=== PATIENT | female | born 1965 | race Caucasian/White ===

== ENCOUNTER 2017-02-24 22:24 | Observation (INO) | payer MEDICARE ==
[~2017-02-24] VITALS: Ht 160 cm; Wt 65.7 kg
--- NOTE | 2017-02-25 00:22 | DIAGNOSTIC IMAGING REPORT ---
PROCEDURE: XR ABD SERIES 2V ABD/1V CHEST INDICATION: NAUSEA TECHNIQUE: AP supine and upright views of the abdomen with single view of the chest. COMPARISON: None. FINDINGS: CHEST: Small bibasilar infiltrates, right greater than left. Normal cardiovascular structures. Bony thorax is unremarkable. ABDOMEN: Bowel gas pattern is normal. Cholecystectomy and pelvic surgical changes.. No soft-tissue masses or unusual calcifications. No evidence of free air. Moderate levoscoliosis. Right hip arthroplasty and total left hip arthroplasty IMPRESSION: 1. Bibasilar infiltrates suggestive of pneumonia 2. Nonspecific bowel gas pattern.
--- NOTE | 2017-02-25 02:23 | ED ORDER SUMMARY ---
..... Patient: LALA LUNA OrderSheet [facility] VisitID: [id number] [place] [address] 52y, F Registration Date/Time: 02/24/2017 ORDER SHEET Weight: 58.9 kg (stated) Allergies: Seroquel, Lamictal GENERAL ORDERS: CBC w Diff Urgent (22:51 02/24/2017 TChapman R.N. per protocol) (Ack 22:52 AMcQuoid ER Tech1) (1:02 CBradburn R.N.) CMP Urgent (22:51 02/24/2017 TChapman R.N. per protocol) (Ack 22:52 AMcQuoid ER Tech1) (1:02 CBradburn R.N.) PT with INR Urgent (22:51 02/24/2017 TChapman R.N. per protocol) (Ack 22:52 AMcQuoid ER Tech1) (1:02 CBradburn R.N.) UA-Culture if indicated Urgent (22:51 02/24/2017 TChapman R.N. per protocol) (Ack 22:52 AMcQuoid ER Tech1) (1:02 CBradburn R.N.) Vitals (22:51 02/24/2017 TChapman R.N. per protocol) (Ack 22:52 AMcQuoid ER Tech1) (23:16 TChapman R.N.) NPO (22:51 02/24/2017 TChapman R.N. per protocol) (Ack 22:52 AMcQuoid ER Tech1) (23:16 TChapman R.N.) Amylase Urgent (23:04 02/24/2017 ABlanchette PA-C) (Ack 23:07 AMcQuoid ER Tech1) (1:02 CBradburn R.N.) Lipase Urgent (23:04 02/24/2017 ABlanchette PA-C) (Ack 23:07 AMcQuoid ER Tech1) (1:02 CBradburn R.N.) Abd Series 2V Abd/1V Chest Urgent (23:06 02/24/2017 ABlanchette PA-C) (Ack 23:07 AMcQuoid ER Tech1) (23:42 RFay) MEDICATION ORDERS: Phenergan IV 25 mg (HIGH ALERT MEDICATION, NOW) (01:09 02/25/2017 Tia Jaime) (Ack 1:14 Gilda R.N.) (1:29 Gilda R.N.) IV FLUIDS: IV NS with Normal Saline 1 Liter: initial bolus 1000 mL (1000 mL/hr), then 1000 mL/hr (NOW) (22:50 02/24/2017 TChapman R.N. per protocol) (22:57 TChapman R.N.) IV Saline Lock (22:51 02/24/2017 TChapman R.N. per protocol) (22:56 TChapman R.N.) Ondansetron IV 4 mg (NOW) (22:55 02/24/2017 TChapman R.N. per protocol) (23:14 TChapman R.N.) Dilaudid IV 0.5 mg (HIGH ALERT MEDICATION, NOW) (23:03 02/24/2017 ABlanchette PA-C) (23:16 TChapman R.N.) Pepcid IV 20 mg/50mL (NOW) (23:04 02/24/2017 ABlanchette PA-C) (23:20 TChapman R.N.) Reglan IV 10 mg (NOW) (23:40 02/24/2017 ABlanchette PA-C) (Ack 23:45 TChapman R.N.) (23:51 TChapman R.N.) Ceftriaxone IV 1 gm/50mL (NOW) (23:41 02/24/2017 ABlanchette PA-C) (Ack 23:45 TChapman R.N.) (23:58 TChapman R.N.) Benadryl IV 25 mg (NOW) (01:09 02/25/2017 Tia Jaime) (Ack 1:14 Gilda R.N.) (1:30 Gilda R.N.) ORDER SHEET NOTES: [Electronically signed by Simran Encinas R.N. (03:33 02/25/2017)] [Electronically signed by Simran Encinas R.N. (03:34 02/25/2017)] [Electronically signed by Alvarez Sr Dr. (16:27 03/01/2017)] [Electronically locked/signed by Simran Encinas R.N. (03:33 02/25/2017)]
--- NOTE | 2017-02-25 02:23 | ED ORDER SUMMARY ---
..... Patient: LALA LUNA OrderSheet [facility] VisitID: [id number] [place] [address] 52y, F Registration Date/Time: 02/24/2017 ORDER SHEET Weight: 58.9 kg (stated) Allergies: Seroquel, Lamictal GENERAL ORDERS: CBC w Diff Urgent (22:51 02/24/2017 TChapman R.N. per protocol) (Ack 22:52 AMcQuoid ER Tech1) (1:02 CBradburn R.N.) CMP Urgent (22:51 02/24/2017 TChapman R.N. per protocol) (Ack 22:52 AMcQuoid ER Tech1) (1:02 CBradburn R.N.) PT with INR Urgent (22:51 02/24/2017 TChapman R.N. per protocol) (Ack 22:52 AMcQuoid ER Tech1) (1:02 CBradburn R.N.) UA-Culture if indicated Urgent (22:51 02/24/2017 TChapman R.N. per protocol) (Ack 22:52 AMcQuoid ER Tech1) (1:02 CBradburn R.N.) Vitals (22:51 02/24/2017 TChapman R.N. per protocol) (Ack 22:52 AMcQuoid ER Tech1) (23:16 TChapman R.N.) NPO (22:51 02/24/2017 TChapman R.N. per protocol) (Ack 22:52 AMcQuoid ER Tech1) (23:16 TChapman R.N.) Amylase Urgent (23:04 02/24/2017 ABlanchette PA-C) (Ack 23:07 AMcQuoid ER Tech1) (1:02 CBradburn R.N.) Lipase Urgent (23:04 02/24/2017 ABlanchette PA-C) (Ack 23:07 AMcQuoid ER Tech1) (1:02 CBradburn R.N.) Abd Series 2V Abd/1V Chest Urgent (23:06 02/24/2017 ABlanchette PA-C) (Ack 23:07 AMcQuoid ER Tech1) (23:42 RFay) MEDICATION ORDERS: Phenergan IV 25 mg (HIGH ALERT MEDICATION, NOW) (01:09 02/25/2017 Tia Jaime) (Ack 1:14 Gilda R.N.) (1:29 Gilda R.N.) IV FLUIDS: IV NS with Normal Saline 1 Liter: initial bolus 1000 mL (1000 mL/hr), then 1000 mL/hr (NOW) (22:50 02/24/2017 TChapman R.N. per protocol) (22:57 TChapman R.N.) IV Saline Lock (22:51 02/24/2017 TChapman R.N. per protocol) (22:56 TChapman R.N.) Ondansetron IV 4 mg (NOW) (22:55 02/24/2017 TChapman R.N. per protocol) (23:14 TChapman R.N.) Dilaudid IV 0.5 mg (HIGH ALERT MEDICATION, NOW) (23:03 02/24/2017 ABlanchette PA-C) (23:16 TChapman R.N.) Pepcid IV 20 mg/50mL (NOW) (23:04 02/24/2017 ABlanchette PA-C) (23:20 TChapman R.N.) Reglan IV 10 mg (NOW) (23:40 02/24/2017 ABlanchette PA-C) (Ack 23:45 TChapman R.N.) (23:51 TChapman R.N.) Ceftriaxone IV 1 gm/50mL (NOW) (23:41 02/24/2017 ABlanchette PA-C) (Ack 23:45 TChapman R.N.) (23:58 TChapman R.N.) Benadryl IV 25 mg (NOW) (01:09 02/25/2017 Tia Jaime) (Ack 1:14 Gilda R.N.) (1:30 Gilda R.N.) ORDER SHEET NOTES: [Electronically signed by Simran Encinas R.N. (03:33 02/25/2017)] [Electronically signed by Simran Encinas R.N. (03:34 02/25/2017)] [Electronically signed by Alvarez Sr Dr. (16:27 03/01/2017)] [Electronically locked/signed by Simran Encinas R.N. (03:33 02/25/2017)]
--- NOTE | 2017-02-25 02:23 | ED CLINICAL REPORT ---
Clinical Report - Physicians/Mid Levels [facility] [address] [place] [address] 02/24/2017 22:27 [id number] Time Seen: 22:55. Arrived- By private vehicle. Historian- patient. HISTORY OF PRESENT ILLNESS Chief Complaint: VOMITING and DIARRHEA. ABDOMINAL PAIN and NAUSEA. This started 3 days ago and is still present. The patient has had nausea and vomiting. She has had mild diarrhea. This has occurred only once. She has had constipation (typically). The illness is described as moderate. (no coffee ground emesis, no black or tarry stools.). Similar symptoms previously: Once (about 3 weeks ago). Recent medical care: Not recently seen/assessed. REVIEW OF SYSTEMS No fever or difficulty with urination. All systems otherwise negative, except as recorded above. PAST HISTORY See nurses notes. Peptic ulcer. gallbladder removed, past history of ulcer disease. typically constipated, had one diarrheal stool,. Problems: Degenerative Joint Disease. Asthma. Bipolar Disorder. Hypercholesterolemia. Depression. Medications: Nicatrol inh. Gabapentin Oral. ASA Oral. Voltaren Gel. ClonazePAM Oral. Potassimin Oral. Lasix Oral. Topamax Oral. Atorvastatin Calcium Oral. Methocarbamol Oral. Tramadol HCL Oral. Albuterol Sulfate HFA Inhalation. Percocet Oral. Promethazine HCl Oral. Zofran ODT Oral. Allergies: Lamictal. Seroquel. SOCIAL HISTORY No drug use. FAMILY HISTORY Negative. ADDITIONAL NOTES The nursing notes have been reviewed with agreement regarding the chief complaint, HPI, ROS, PMH and patient medications and allergies. PHYSICAL EXAM Appearance: Alert. Oriented X3. No acute distress. Eyes: Pupils equal, round and reactive to light. Neck: Neck supple. CVS: Normal heart rate and rhythm. Heart sounds normal. Pulses normal. Respiratory: No respiratory distress. Breath sounds normal. Abdomen: Soft. Mild tenderness in the epigastric area with guarding present. No rebound tenderness or Mcnamara's, obturator or psoas sign present. Abnormal bowel sounds: diminished. No distention or mass present. Skin: Skin warm and dry. Normal skin color. No rash. Normal skin turgor. Extremities: No lower extremity edema. Neuro: Oriented X 3. LABS, X-RAYS, AND EKG Laboratory Tests: UA-Culture if indicated: (TIFFANIE: 02/24/2017 00:01) ( [facility] 02/25/2017 00:56) Final results Test Result Flag Units (Reference) URINE COLOR YELLOW URINE APPEARANCE CLEAR URINE GLUCOSE NEGATIVE (NEGATIVE) URINE BILIRUBIN NEGATIVE (NEGATIVE) URINE KETONE NEGATIVE (NEGATIVE) URINE SPECIFIC GRAVITY 1.015 (1.010-1.030) URINE PH 7.0 (5.0-8.0) URINE PROTEIN 1+ (NEGATIVE) URINE UROBILINOGEN 0.2 EU/dL (0.2-1.0) URINE NITRITE NEGATIVE (NEGATIVE) URINE BLOOD NEGATIVE (NEGATIVE) URINE LEUK ESTERASE NEGATIVE (NEGATIVE) URINE RBC 0-1 rbc/hpf (0-1) URINE WBC RARE wbc/hpf (0-1) URINE EPITHELIAL CELLS 0-1 EPI/hpf (0-5) URINE BACTERIA NONE SEEN (NONE SEEN) URINE COMMENT CULT NOT INDICATED HYALINE CAST: 1-3/LPF2+ MUCUSYEAST CELLS: RAREURINE CULTURES ARE SET-UP BASED ON THE FOLLOWING CRITERIA:POSITIVE NITRITEPOSITIVE LEUKOCYTE ESTERASEGREATER THAN 10 WHITE BLOOD CELLSMODERATE (2+) OR GREATER BACTERIA CBC w Diff: (TIFFANIE: 02/24/2017 22:42) ( [facility] 02/24/2017 22:59) Final results Test Result Flag Units (Reference) WHITE BLOOD COUNT 5.8 K/uL (4.5-11.5) RED BLOOD COUNT 4.68 M/uL (4.00-5.20) HEMOGLOBIN 11.6 L gm/dL (12.0-16.0) HEMATOCRIT 37.5 % (36.0-46.0) MEAN CELL VOLUME 80 fL (80-100) MEAN CORPUSCULAR HGB 25 L pg (26-34) MEAN CORPUSCULAR HGB CONC 31 g/dL (31-37) RED CELL DISTRIBUTION WIDTH 18.2 H % (11.6-14.8) PLATELET COUNT 983 H K/uL (150-400) NEUTROPHIL % 69.2 % (50-75) LYMPH % 25.7 % (25-40) MONO % 4.1 % (3-14) EOSINOPHIL % 0.1 % (0-4) BASOPHIL % 0.9 % (0-2) PT with INR: (TIFFANIE: 02/24/2017 22:42) ( [facility] 02/24/2017 23:04) Final results Test Result Flag Units (Reference) INR 0.9 (0.8-1.2) Low Intensity Therapy: INR 1.5-2.0 PT range 18.5-23.1Mod.Intensity Therapy: INR 2.0-3.0 PT range 23.1-31.5High Intensity Therapy: INR 2.5-3.5 PT range 27.4-35.5High Intensity Therapy 2: INR 3.0-4.0 PT range 31.5-39.3 Lipase: (TIFFANIE: 02/24/2017 22:42) ( [facility] 02/24/2017 23:16) Final results Test Result Flag Units (Reference) LIPASE 111 U/L (73-393) AMYLASE 31 U/L (25-115) CMP: (TIFFANIE: 02/24/2017 22:42) ( [facility] 02/24/2017 23:16) Final results Test Result Flag Units (Reference) GLUCOSE 118 H mg/dL (70-110) BUN 5 L mg/dL (7-18) CREATININE 0.7 mg/dL (0.6-1.3) Estimated GFR >60 mL/min Estimated GFR- >60 mL/min Note: Persistent reduction over 3 months in eGFR<60 mL/min/1.73 m2 defines CKD. Patients with eGFR values>=60 mL/min/1.73 m2 may also have CKD if evidence ofpersistent proteinuria. Additional information may be foundat www.kidney.org. SODIUM 142 mmol/L (136-145) POTASSIUM 4.1 mmol/L (3.5-5.1) CHLORIDE 102 mmol/L (98-107) CARBON DIOXIDE 29 mmol/L (21-32) CALCIUM 9.2 mg/dL (8.5-10.1) TOTAL PROTEIN 7.6 g/dL (6.4-8.2) ALBUMIN 3.3 g/dL (3.3-5.0) BILIRUBIN, TOTAL 0.7 mg/dL (0.0-1.0) ALKALINE PHOSPHATASE 102 U/L (46-116) AST (SGOT) 12 L U/L (15-37) ALT (SGPT) 11 L U/L (12-78) . Note - Tests: (PROCEDURE: XR ABD SERIES 2V ABD/1V CHEST INDICATION: NAUSEA TECHNIQUE: AP supine and upright views of the abdomen with single view of the chest. COMPARISON: None. FINDINGS: CHEST: Small bibasilar infiltrates, right greater than left. Normal cardiovascular structures. Bony thorax is unremarkable. ABDOMEN: Bowel gas pattern is normal. Cholecystectomy and pelvic surgical changes.. No soft-tissue masses or unusual calcifications. No evidence of free air. Moderate levoscoliosis. Right hip arthroplasty and total left hip arthroplasty IMPRESSION: 1. Bibasilar infiltrates suggestive of pneumonia 2. Nonspecific bowel gas pattern. reviewed by me. interpreted by radiology. agree with findings. discussed via pacs.). PROGRESS AND PROCEDURES Course of Care: the patient is a pleasant 52-year-old female presenting for evaluation of nausea vomiting and abdominal pain. The initial workup as been started by the mid-level provider. I have introduced myself to the patient and performed my own independent history and examination. Agree with the prior providers assessment and plan. The patient's workup was remarkable for the findings above. Because the patient's nausea and vomiting, was difficult for the patient to get comfortable to the point where she would tolerate by mouth. Patient did not pass by mouth challenge. Because the patient will need antibiotics for the pneumothe patient is at risk for poor outcome if she is unable to tolerate the medication by mouth. Had a discussion with the patient in regards to the option of being admitted to the hospital. Recommended that this is the best option at this time. Patient is agreeable to being admitted to the hospital. Had spoken with the hospitalist who will accept the patient for IV antibiotic treatment for the pneumonia. The patient is otherwise been resting in bed and nontoxic in appearance. Vital signs have been within normal limits here in the emergency department. Did not fill patient is admitted to the ICU. Do not feel further workup/intervention is required here in the emergency department. Antibiotics have been started. Discussed with the patient workup here in emergency department a clean diagnosis and plan of care. All questions have been answered. The patient expressed understanding of these instructions and was agreeable to them. Prior to patient's departure from the emergency department she is noted to be resting in bed and in no acute distress. Patient remains nontoxic. Blood pressure is remaining stable. Patient is stable. Physical exam findings are improved. Symptoms better. CLINICAL IMPRESSION Bacterial pneumonia. Vital signs recorded and reviewed; empiric antibiotics given in the ED and prescribed. Subacute noninfectious gastroenteritis. anemia chronic. INSTRUCTIONS Rest for three days until better. Take clear liquids only for the next 12 hours. No alcohol. Do not smoke. Warnings: Further evaluation is necessary. Your Current Medications: CONTINUE TAKING THE FOLLOWING MEDICATIONS: Albuterol Sulfate HFA Inhalation. ASA Oral. Atorvastatin Calcium Oral. ClonazePAM Oral. Gabapentin Oral. Lasix Oral. Methocarbamol Oral. Nicatrol inh*. Percocet Oral. Potassimin Oral. Promethazine HCl Oral. Topamax Oral. Tramadol HCL Oral. Voltaren Gel*. Zofran ODT Oral. Prescription Medications: Reglan 10 mg tablets: take 1 orally four times daily as needed for nausea, vomiting or indigestion. Dispense fifteen (15). No refills. Substitution is permissible. Levaquin 500 mg: take 1 tab orally every day for 10 days. No refills. Substitution is permissible. Tessalon Perles 100 mg: take 1-2 orally every 6 hours as needed for cough. Dispense twenty (20). No refills. Substitution is permissible. Understanding of the discharge instructions verbalized by patient. (Electronically signed by Alvarez Sr Dr. 03/01/2017 16:27)
--- NOTE | 2017-02-25 02:23 | ED NURSING NOTES ---
Clinical Report - Nurses [facility] [place] [address] 02/24/2017 22:27 Patient: LALA LUNA TRIAGE Triage time 22:35. Acuity: LEVEL 3. Chief Complaint: ABDOMINAL PAIN, NAUSEA and VOMITING. --22:46 Alis Miller R.N. Chief Complaint: ABDOMINAL PAIN, NAUSEA and VOMITING. --23:44 Alis Miller R.N. 22:35 02/24/17. BP: 151/82. HR: 78. RR: 16. O2 saturation: 96% on room air. Temp: 98.6 F. Pain level now: 06/14. --23:44 Alis Miller R.N. Weight: 58.9 kg stated. Height/Length: 63 inches Per Patient. BMI: 23. --22:34 Alis Miller R.N. Medications Zofran ODT Oral. --22:38 Alis Miller R.N. Promethazine HCl Oral. --22:38 Alis Miller R.N. Percocet Oral. --22:38 Alis Miller R.N. Albuterol Sulfate HFA Inhalation. --22:38 Alis Miller R.N. Tramadol HCL Oral. --22:39 Alis Miller R.N. Methocarbamol Oral. --22:39 Alis Miller R.N. Atorvastatin Calcium Oral. --22:39 Alis Miller R.N. Topamax Oral. --22:40 Alis Miller R.N. Lasix Oral. --22:40 Alis Miller R.N. Potassimin Oral. --22:40 Alis Miller R.N. ClonazePAM Oral. --22:40 Alis Miller R.N. Voltaren Gel. --22:41 Alis Miller R.N. ASA Oral. --22:42 Alis Miller R.N. Gabapentin Oral. --22:43 Alis Miller R.N. Nicatrol inh. --22:43 Alis Miller R.N. Allergies Seroquel. --22:41 Alis Miller R.N. Lamictal. --22:42 Alis Miller R.N. History Arrived by private vehicle. Historian: patient. ( started 2 weeks ago, went away for about 3 days and now its back. Pt had a fever but does not now). SOCIAL HX: Light tobacco smoker (cigarette)- less than 1/2 a pack per day. No alcohol use or drug use. No recent travel. No infectious disease exposure. No known contact with a sick individual. FALL RISK ASSESSMENT: Fall risk assessment completed. No fall risk identified. NUTRITIONAL RISK ASSESSMENT: The nutritional risk assessment revealed no deficiencies. FUNCTIONAL ASSESSMENT: Functional assessment: no impairments noted. LEARNING NEEDS ASSESSMENT: The learning needs assessment revealed no barriers. SKIN INTEGRITY ASSESSMENT: Skin integrity risk assessment completed. No skin integrity risk identified. --22:46 Alis Miller R.N. ( 2 weeks ago). She has had nausea, vomiting, constipation and abdominal pain. No diarrhea or fever. SOCIAL HX: Light tobacco smoker- less than 1/2 a pack per day. No alcohol use or drug use. No recent travel. No known contact with a sick individual. FALL RISK ASSESSMENT: Fall risk assessment completed. No fall risk identified. NUTRITIONAL RISK ASSESSMENT: The nutritional risk assessment revealed no deficiencies. FUNCTIONAL ASSESSMENT: Functional assessment: no impairments noted. LEARNING NEEDS ASSESSMENT: The learning needs assessment revealed no barriers. SKIN INTEGRITY ASSESSMENT: Skin integrity risk assessment completed. No skin integrity risk identified. --23:44 Alis Miller R.N. PROBLEMS: Degenerative Joint Disease. Asthma. Bipolar Disorder. Hypercholesterolemia. Depression. --22:44 Alis Miller R.N. ADDITIONAL SURGERIES: Back Surgery. Bilateral Tubal Ligation. Cholecystectomy. Hip Surgery. Oophorectomy. --22:45 Alis Miller R.N. Interventions ID band on patient. To waiting room. --22:46 Alis Miller R.N. PHYSICAL ASSESSMENT GENERAL / NEURO / PSYCH: Alert. Oriented X 4. Appears in no acute distress. HEENT: Mucous membranes are pink. RESPIRATORY: Respirations not labored. Breath sounds within normal limits. CVS: Normal sinus rhythm noted. Capillary refill less than 2 seconds. GI / : The patient has had nausea. Bilious emesis noted. Has vomited numerous times. She has diarrhea. It has been associated with cramps. Abdominal tenderness in the epigastric area. Guarding present. No vaginal discharge. Stool color normal. SKIN: Skin is warm and dry. --22:48 Alis Miller R.N. NURSING PROGRESS NOTES 22:49 02/24/2017 Site #1 started via IV in the left antecubital space with an 20g angiocath; one attempt. Blood drawn: rainbow set. Labeled in the presence of the patient and sent to the lab. Saline lock flushed with 5 mL saline. --22:49 Alis Miller R.N. Call light placed in reach. Side rails up x 1. Bed placed in lowest position. Brakes of bed on. Patient ready for evaluation- chart flagged. --22:49 Alis Miller R.N. 22:57 02/24/2017 Started IV Fluids IV NS (Saline); bolus of 1000 mL then at 1000 mL/hr via site #1 --22:57 Alis Miller R.N. 23:05 02/24/2017 Ondansetron (Ondansetron HCl) IVP 4 mg given. via site #1. Allergies verified and confirmed 5 rights. IV patency established. IV site checked: no pain, redness, or swelling. IV flushed thoroughly pre- and post-medication administration. IVP given by RN. --23:14 Alis Miller R.N. Patient and family informed about plan of care. ( resting in bed, daughter at bedside.). --23:17 Alis Miller R.N. 23:10 02/24/2017 Started 20 mg of Pepcid IVPB; over 20 minute(s) via site #1 via dial-a-flow. Allergies verified and confirmed 5 rights. IV site checked: no pain, redness, or swelling. --23:20 Alis Miller R.N. 23:15 02/24/2017 Dilaudid (HYDROmorphone HCl PF) IVP 0.5 mg given. via site #1. Allergies verified, confirmed 5 rights and sedative warning given to the patient and patient's family. IV patency established. IV site checked: no pain, redness, or swelling. IV flushed thoroughly pre- and post-medication administration. IVP given by RN. --23:16 Alis Miller R.N. 23:30 02/24/2017 Pepcid IVPB Discontinued: infused. Total amount infused: 50 mL. --23:51 Alis Miller R.N. 23:40 02/24/2017 IV Fluids IV NS Discontinued: bag #1 infused. Total amount infused: 1000 mL. IV patency established. IV site checked: no pain, redness, or swelling. IV flushed thoroughly. --23:50 Alis Miller R.N. 23:51 02/24/2017 Reglan (Metoclopramide HCl) IVP 10 mg given over 4 minute(s) via site #1. Allergies verified and confirmed 5 rights. IV patency established. IV site checked: no pain, redness, or swelling. IV flushed thoroughly pre- and post-medication administration. IVP given by RN. --23:51 Alis Mliler R.N. 23:58 02/24/2017 Started 1 gm of Ceftriaxone IVPB in bag #1 50 mL; over 20 minute(s) via site #1 via dial-a-flow. Allergies verified and confirmed 5 rights. IV patency established. IV site checked: no pain, redness, or swelling. IV flushed thoroughly pre- and post-medication administration. --23:58 Alis Miller R.N. 00:02 02/25/17. BP: 107/63. HR: 80. RR: 18 (unlabored). O2 saturation: 91% on room air. --00:03 Alis Miller R.N. 00:37 02/25/2017 Ceftriaxone IVPB Discontinued: infused. Total amount infused: 50 mL. IV patency established. IV site checked: no pain, redness, or swelling. IV flushed thoroughly. --00:37 Alis Miller R.N. 00:38 02/25/17. Patient ID band checked: patient confirmed. Instructions provided to collect clean catch urine and patient verbalized understanding urine collected with return of yellow-colored clear urine; sample sent to lab for urinalysis. Specimen labeled in the presence of the patient. --00:38 Alis Miller R.N. 01:16 02/25/17. BP: 137/79 taken while lying. HR: 107 (tachycardic). RR: 18 (unlabored). O2 saturation: 91% on room air. Temp: 99.2 F. Pain level now: 06/14. --01:17 Alis Miller R.N. 01:12 02/25/2017 PHENERGAN (Promethazine HCl) IVP 25 mg given over 4 minute(s) via site #1. Allergies verified and confirmed 5 rights. IV patency established. IV site checked: no pain, redness, or swelling. IV flushed thoroughly pre- and post-medication administration. IVP given by RN. --01:29 Simran Encinas R.N. 01:18 02/25/2017 Benadryl (DiphenhydrAMINE HCl) IVP 25 mg given over 2 minute(s) via site #1. Allergies verified, confirmed 5 rights and sedative warning given to the patient and patient's family. IV patency established. IV site checked: no pain, redness, or swelling. IV flushed thoroughly pre- and post-medication administration. IVP given by RN. --01:30 Simran Encinas R.N. 02:15 Inpatient, female H&P given to patient/family member to complete. --02:23 McQuoid, Piedad, ER Tech1. DISPOSITION / DISCHARGE 03:22 02/25/2017 Site #[address] upon admission; patent, no pain and no signs of infection or infiltration. Good blood return present. Converted to saline lock and flushed with 10 mL saline; flushes easily. --03:22 Simran Encinas R.N. Report was given to a nurse via a phone call. Report included patient's care, treatment, medications, reviewed medication reconcilliation, and condition (including any recent changes or anticipated changes). All questions were answered. Report was acknowledged and care was transferred. (Lilli CASTRO). Patient's personal items include: cell phone, orange and white quilt; items were transported with the patient. --03:30 Smiran Encinas R.N. 03:24 02/25/17. BP: 139/82. HR: 110. RR: 18. O2 saturation: 96%. Temp: 99.8 F (oral). Pain level now: 03/14. --03:30 Simran Encinas R.N. Departure time: 03:32. Transported via stretcher by tech. --03:34 Simran Encinas R.N. Locked/Released at 02/25/2017 3:34 by Simran Encinas R.N.
--- NOTE | 2017-02-25 03:31 | Progress Note ---
Subjective General Admission History and Physical Examination Patient Name: Nati Keys Admission Date: February 25, 2017; time 0330 Admission Type; Acute Care Observation. Primary Care Provider: Jhonny Montana; ([phone]) Attending Physician: Eddi Valenzuela M.D. Admitting Physician: Eddi Valenzuela M.D. Code Status: FULL CODE Room: 208 SUBJECTIVE Historian: Patient and daughter Reliability: Fair Chief Complaint: Nausea, vomiting Abdominal pain Shortness of breath History of Present Illness: The patient is a 52-year-old white female with a significant past medical history of COPD, bipolar disorder, osteoarthritis, restless leg syndrome, nicotine dependence-smoking who presented to [facility] emergency department on the day of admission secondary to complaints of progressive worsening abdominal pain, nausea, vomiting and shortness of breath. [facility] ER evaluation was consistent with bilateral pneumonia. Secondary to the above, the patient was admitted by Eddi Valenzuela MD, for further evaluation and treatment. Patient reports that she was severely ill about 1 week ago. She states that she 's had progressive abdominal pain, most notably in the epigastric region. This has been associated with nausea and intermittent vomiting. Patient states that she used support of home care for her initial phase of her illness and had some improvement over the course of the week, but nearly 3 days ago she began having worsening symptoms. She describes nausea and associated vomiting that becomes most significant when she is attempting to eat or take her medication. Patient states that she is not able to tolerate medication at this time due to her nausea. Patient also developed episodes of shortness of breath. Patient has been a longtime smoker and recently is attempting to slow down her smoking habit. Patient states that she has an intermittent nonproductive cough. She does not report sick contacts. She reports having subjective fevers, no chills. Patient reports that her anxiety escalates when she is not feeling well. Patient also reports of restless leg syndrome, therefore's having poor attempts at rest. Secondary to abdominal pain, nausea vomiting and shortness of breath the patient presented to [facility] emergency department for further evaluation and treatment and the [facility] ER evaluation was consistent with bilateral pneumonia. The chest x-ray showed bibasal pulmonary infiltrates. Patient was started on IV antibiotics and admitted for pneumonia with infiltrates. In addition to the pneumonia. Patient's also admitted due to by mouth intolerance. Patient has been intractably nauseated and has not been able to maintain adequate by mouth due to the episodes of vomiting. Therefore, admission under observation is applicable to avoid delay in medication delivery. PAST MEDICAL HISTORY Illnesses: 1. History of scarlet fever 2. COPD 3. Nicotine dependence-smoking 4. Osteoarthritis. 5. Bipolar Allergies: 1. Lamotrigine 2. Seroquel Medications: Nicatrol inh. Gabapentin 300 mg 4 times per day.. ASA 81 mg daily. Voltaren Gel. Topical application when necessary ClonazePAM by mouth 0.5 mg at bedtime Potassimin 20 mEq when necessary when taking Lasix Lasix Oral 20 mg when necessary with swelling Topamax Oral 300 mg at bedtime Atorvastatin Calcium Oral 40 mg daily Methocarbamol Oral when necessary Tramadol HCL Oral 50 mg every 6 hours Albuterol Sulfate HFA Inhalation 1-2 puffs when necessary for wheeze Q6 hours Percocet Oral 08/07/25 by mouth when necessary pain every 4-6 hours Promethazine HCl Oral 25 mg by mouth every 6 hours as needed for nausea Zofran ODT Oral. 4 . He'll every 8 hours as needed for nausea Allergies: Lamictal. Seroquel Surgery: 1. Right and left hip arthroplasty 2. Arthroscopic surgery of the left knee 3. Lower back surgery for unknown cyst removal 4. Cholecystectomy 5. Hysterectomy 6. Oophoretomy Injuries: 1. Injuries to the knees, hips and back Hospitalizations: 2010 from what appears to be respiratory failure FAMILY HISTORY Parents: 1. Father, unknown 2. Mother, unknown Siblings: 1. Female, Sonia, living, 34, 2. Male Yash, living, 36, 3. Male Ehsan unknown Children: 1. Male, Sam Keys 33, healthy 2. Female Gricel Keys 30 years old, healthy 3. Female Tiffanie 28 4. Female Sara 26 Other significant family history: None SOCIAL HISTORY 1. Marital Status: 2. Temple: [employer] 3. Education: unknown 4. Employment History: Currently under disability 5. Occupational health exposures: None HABITS 1. Tobacco: 25 pack years, recent attempting to stop. 2. Drugs: None 3. Alcohol: None 4. Caffeine: 1/2 gallon of Tea per day. HEALTH SUPERVISION Item/Test 1. No recent health maintenance/supervision IMMUNIZATIONS: 1. Pneumococcal: Previous pneumonia 2. Influenza: Unsure 3. Tetanus: Needing to update ADVANCED DIRECTIVES: 1. Living well: No 2. POLST: No 3. Code Status: FULL CODE 4. 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 Donor card: unknown REVIEW OF SYSTEMS Remarkable for those things stated in the history of present illness and past medical history. Seventeen point review of system completed with the following notable findings: General: hip, knee and back pain, fatigue Mouth: dentures Throat: cough, nausea Respiratory: Shortness of breath Cardiovascular: none, limited swelling lower extremity Abdominal; epigastic pain; nausea, vomiting. Physical Exam Vital Signs / I&Os BP: 151/82. HR: 78. RR: 16. O2 saturation: 96% on room air. Temp: 98.6 F. General Appearance Alert, Oriented X3, Cooperative, anxious HEENT PERRLA, EOMI, dry membranes Lungs end expiratory wheeze, Neck Supple, No JVD Cardiovascular Normal S1 and S2, No murmurs, gallops, rubs Abdomen tenderness in the epigastric region, bowel sounds in all 4 quadrants. Nondistended. No rebound Extremities No clubbing, Normal pulses Skin No Breakdown, No Significant Lesions Neurological Normal speech, Normal tone, Cranial nerves intact Psych/Mental Status Mental status normal, Mood normal LAB Results Laboratory Tests 02/24 02/24 2242 2242 Chemistry Plasma Sodium (136 - 145 mmol/L) 142 Plasma Potassium (3.5 - 5.1 mmol/L) 4.1 Plasma Chloride (98 - 107 mmol/L) 102 CO2 (Enzymatic) (21 - 32 mmol/L) 29 BUN (7 - 18 mg/dL) 5 Creatinine (0.6 - 1.3 mg/dL) 0.7 Est GFR ( Amer) (mL/min) >60 Est GFR (Non-Af Amer) (mL/min) >60 Glucose (70 - 110 mg/dL) 118 Plasma Calcium (8.5 - 10.1 mg/dL) 9.2 Total Bilirubin (0.0 - 1.0 mg/dL) 0.7 AST (15 - 37 U/L) 12 ALT (12 - 78 U/L) 11 Alkaline Phosphatase (46 - 116 U/L) 102 Total Protein (6.4 - 8.2 g/dL) 7.6 Albumin (3.3 - 5.0 g/dL) 3.3 Amylase (25 - 115 U/L) 31 Lipase (73 - 393 U/L) 111 Coagulation INR (0.8 - 1.2) 0.9 Hematology WBC (4.5 - 11.5 K/uL) 5.8 RBC (4.00 - 5.20 M/uL) 4.68 Hgb (12.0 - 16.0 gm/dL) 11.6 Hct (36.0 - 46.0 %) 37.5 MCV (80 - 100 fL) 80 MCH (26 - 34 pg) 25 RDW (11.6 - 14.8 %) 18.2 Neut % (Auto) (50 - 75 %) 69.2 Lymph % (Auto) (25 - 40 %) 25.7 Payette % (Auto) (3 - 14 %) 4.1 Eos % (Auto) (0 - 4 %) 0.1 Baso % (Auto) (0 - 2 %) 0.9 Plt Count, EDTA (150 - 400 K/uL) 983 PUBS MCHC (31 - 37 g/dL) 31 Imaging XR ABD SERIES 2V ABD/1V CHEST IMPRESSION: 1. Bibasilar infiltrates suggestive of pneumonia 2. Nonspecific bowel gas pattern. Assessment and Plan Problem List 1. Bilateral pneumonia Plan Patient on initial evaluation is seen with bibasilar pulmonary infiltrates. Patient has shortness of breath. On initial evaluation. Patient will be on IV placed antibiotics including ceftriaxone and azithromycin. Attempting to improve on oral intake tolerance, once appropriate, will convert to oral standard medication. Maintain sats above 92%. Oxygen delivery system will be at bedside. Respiratory therapy and care, including do nebs every 6 hours. Flovent at bedside. To be taken every 12 hours. Incentive spirometry is advised. Labs for Legionella and strep on order. Education on smoking cessation. Nicotine replacement is available 2. Epigastric abdominal pain Plan Chronic source of epigastric pain worsening over the past week. Here with intolerance on by mouth intake. GERD is not well controlled on current home therapy.. Given the level of discomfort. Advising patient to seek further outpatient care by gastroenterology. May be appropriate to have the region scoped. We'll watch for any changes in symptoms. Continue with the 40 pantoprazole by mouth, GERD precautions in place. 3. Intractable nausea and vomiting Plan Most likely secondary to current. Ondansetron 4 mg every 6 hours as needed. GERD precautions Promethazine IV as needed. 4. Bipolar 1 disorder Plan Relatively stable. Attempt to improve on by mouth intake. We'll provide home medication at this time. Patient will continue with the same dose of her Topamax. We'll also have clonazepam. Would recommend patient continue with the home therapy. 5. COPD (chronic obstructive pulmonary disease) Plan Complete assessment is not status post. Suggesting outpatient pulmonary function testing. Patient having mild exacerbation with current line of infection. We'll have respiratory therapy available for 2 every 6 hours. The bedside. Inhaled steroid available. In addition, we'll treat the pneumonia. IV antibiotics until discharge. Smoking cessation encouraged. Current status: Fair, unstable Anticipated discharge date: Anticipated discharge in 1 day Anticipated discharge placement: Home Patient care time: Time spent in chart review, patient interview, physical exam, CPOE, and care documentation: 70 minutes Visit to patient today: 1 Complexity of care: Moderate DVT prophylaxis: Lovenox GI prophylaxis; pantoprazole E&M Codes Admission: Obsv-Comp/Moderate/01211
[2017-02-25 03:50] VITALS: BP 145/81
[2017-02-25] MEDS ORDERED: CLONAZEPAM0.5 MG PO (06:37)
[2017-02-25] MEDS ORDERED: PHENERGAN EQUIV25 MG PO (06:38)
[2017-02-25] MEDS ORDERED: PERCOCET1 TA1 PO (06:39)
[2017-02-25] MEDS ORDERED: GABAPENTIN300 MG PO (06:39)
[2017-02-25] MEDS ORDERED: METHOCARBAMOL500 MG PO (06:43)
[2017-02-25] MEDS ORDERED: TRAMADOL HCL50 MG PO (06:44)
[2017-02-25] MEDS ORDERED: ASPIRIN PO (06:44)
[2017-02-25] MEDS ORDERED: RANITIDINE HCL300 MG PO (06:47)
[2017-02-25] MEDS ORDERED: OMEPRAZOLE40 MG PO (06:49)
[2017-02-25] MEDS ORDERED: TOPAMAX100 MG PO (06:50)
[2017-02-25] MEDS ORDERED: FUROSEMIDE20 MG PO (06:52)
[2017-02-25] MEDS ORDERED: KLOR-CON 1010 MEQ PO (06:53)
[2017-02-25 07:36] VITALS: BP 131/72
[2017-02-25 11:03] VITALS: BP 114/69
[2017-02-25 14:20] VITALS: BP 114/62
[2017-02-25 18:04] VITALS: BP 136/89
[2017-02-25 22:13] VITALS: BP 130/79
[2017-02-26 02:47] VITALS: BP 122/59
--- NOTE | 2017-02-26 06:07 | Progress Note ---
Subjective General Note Date: February 26, 2017 Admission Date: February 25, 2017 Hospital Day: 2 PCP: Jhonny Montana Status: Inpatient Advanced Directive: FULL CODE Room: 206 Breif history The patient is a 52-year-old white female with a significant past medical history of COPD, bipolar disorder, osteoarthritis, restless leg syndrome, nicotine dependence-smoking who presented to [facility] emergency department on the day of admission secondary to complaints of progressive worsening abdominal pain, nausea, vomiting and shortness of breath. [facility] ER evaluation was consistent with bilateral pneumonia. Secondary to the above, the patient was admitted by Eddi Valenzuela MD, for further evaluation and treatment. Subjective: The patient states her shortness of breath is slightly is ongoing. Patient has not had significant improvement in her airway. Patient is refraining from smoking activities. Patient's states that the epigastric abdominal pain is resolving. She continues report of nausea but no vomiting. Patient is better tolerating her food.. Patient requests: None Physical Exam Vital Signs / I&Os Vital Signs Date Time Temp Pulse Resp B/P Pulse O2 O2 Flow FiO2 Ox Delivery Rate 02/26 0247 98.6 78 14 122/59 96 Nasal 2.0 Cannula 02/25 2213 99.0 102 17 130/79 94 Nasal 2.0 Cannula 02/25 2028 2.0 02/25 1810 2.0 02/25 1804 99.0 108 18 136/89 95 Nasal 2.0 Cannula 02/25 1420 98.4 99 18 114/62 90 Room Air 02/25 1337 87 Room Air 0.0 02/25 1335 94 Room Air 2.0 02/25 1103 98.2 105 18 114/69 94 Room Air 2.0 02/25 1041 2.0 02/25 0830 2.0 02/25 0807 90 2.0 02/25 0736 98.1 107 18 131/72 90 Room Air 0.0 02/25 0655 2.0 I&O 02/25 0800 02/25 1600 02/26 0000 Intake Total 1688 1187 Output Total 508 239 4711 Balance -100 1038 -513 General Appearance Oriented X3, Cooperative, No acute distress HEENT Atraumatic, EOMI Lungs wheezes noted bilaterally, cough, rhonchi. air movement is decreased bilaterally Neck Supple, No JVD Cardiovascular Regular rate and rhythm, Normal S1 and S2 Abdomen Soft, No rebound, tenderness in the epigastric region, bowel sounds in all 4 quadrants Skin No Rashes Neurological Cranial nerves intact Psych/Mental Status Mental status normal, Mood normal LAB Results Laboratory Tests 02/26 05 Chemistry Plasma Sodium (136 - 145 mmol/L) 142 Plasma Potassium (3.5 - 5.1 mmol/L) 4.1 Plasma Chloride (98 - 107 mmol/L) 108 CO2 (Enzymatic) (21 - 32 mmol/L) 26 BUN (7 - 18 mg/dL) 4 Creatinine (0.6 - 1.3 mg/dL) 0.7 Est GFR ( Amer) (mL/min) >60 Est GFR (Non-Af Amer) (mL/min) >60 Glucose (70 - 110 mg/dL) 98 Plasma Calcium (8.5 - 10.1 mg/dL) 8.3 Plasma Magnesium (1.8 - 2.4 mg/dL) 2.0 Total Bilirubin (0.0 - 1.0 mg/dL) 0.2 AST (15 - 37 U/L) 11 ALT (12 - 78 U/L) 7 Alkaline Phosphatase (46 - 116 U/L) 67 Total Protein (6.4 - 8.2 g/dL) 5.3 Albumin (3.3 - 5.0 g/dL) 2.3 Hematology WBC (4.5 - 11.5 K/uL) 5.9 RBC (4.00 - 5.20 M/uL) 3.54 Hgb (12.0 - 16.0 gm/dL) 8.8 Hct (36.0 - 46.0 %) 28.3 MCV (80 - 100 fL) 80 MCH (26 - 34 pg) 25 RDW (11.6 - 14.8 %) 17.6 Neut % (Auto) (50 - 75 %) 42.2 Lymph % (Auto) (25 - 40 %) 46.9 Ogle % (Auto) (3 - 14 %) 7.9 Eos % (Auto) (0 - 4 %) 2.2 Baso % (Auto) (0 - 2 %) 0.8 Plt Count, EDTA (150 - 400 K/uL) 715 PUBS MCHC (31 - 37 g/dL) 31 Assessment and Plan Problem List 1. Bilateral pneumonia Plan Incomplete healing of airway pneumonia. Continue with antibiotics as scheduled. Maintaining O2 sats above 92%. Continue with the DuoNeb every 6 hours as needed. Incentive spirometry reviewed Further discussion recommendations on smoking cessation. Admission status; change status from in patient acute care from observations acute care. 2. Epigastric abdominal pain Plan Epigastric pain is resolving currently on soft diet. The nausea, vomiting, being intractable at admission, now is intermittent. Further discussion regarding outpatient gastroenterology 3. Intractable nausea and vomiting Plan As discussed above. Maintain oral Protonix at 40 mg daily. GERD precautions in place. Intensive trauma and promethazine as needed 4. Bipolar 1 disorder Plan Stable Currently, tolerated by mouth. Patient is compliant with psychotropic medication 5. COPD (chronic obstructive pulmonary disease) Plan Further palpation. Assessment is recommended. Continue to monitor pulmonary airway complete antibiotics. Reviewed recommendations on incentive spirometry. Following blood cultures. Current status: Fair, unstable Anticipated discharge date: Anticipated discharge in 1 day Anticipated discharge placement: Home Patient care time: Time spent in chart review, patient interview, physical exam, CPOE, and care documentation: 25 minutes Visit to patient today: 1 Complexity of care: Moderate to mild DVT prophylaxis: Lovenox GI prophylaxis; pantoprazole E&M Codes Rounding: Inpt-Moderate/15952
[2017-02-26 06:37] VITALS: BP 133/77
[2017-02-26 10:41] VITALS: BP 135/84
[2017-02-26 14:25] VITALS: BP 137/74
[2017-02-26 18:15] VITALS: BP 128/69
[2017-02-26 22:28] VITALS: BP 129/63
[2017-02-27 02:38] VITALS: BP 104/70
[2017-02-27 07:27] VITALS: BP 138/82
--- NOTE | 2017-02-27 07:51 | Progress Note ---
Subjective General Note Date: February 27, 2017 Admission Date: February 25, 2017 Hospital Day: 3 PCP: Jhonny Montana Status: Inpatient Advanced Directive: FULL CODE Room: 206 Breif history The patient is a 52-year-old white female with a significant past medical history of COPD, bipolar disorder, osteoarthritis, restless leg syndrome, nicotine dependence-smoking who presented to [facility] emergency department on the day of admission secondary to complaints of progressive worsening abdominal pain, nausea, vomiting and shortness of breath. [facility] ER evaluation was consistent with bilateral pneumonia. Secondary to the above, the patient was admitted by Eddi Valenzuela MD, for further evaluation and treatment. Subjective: The patient reports that she continues to have improvement. She however is had episodes of nausea and vomiting this morning. She states that she is able to get up and around the [place] without much challenge. She is weaned off the O2. Breathing is improved. Patient is ready to go home. Patient requests: Physical Exam Vital Signs / I&Os Vital Signs Date Time Temp Pulse Resp B/P Pulse O2 O2 Flow FiO2 Ox Delivery Rate 02/27 0727 98.8 95 20 138/82 96 Room Air 0.0 02/27 0238 98.8 107 20 104/70 93 Nasal 1.0 Cannula 02/27 0022 1.0 02/26 2228 99.0 107 20 129/63 93 Room Air 02/26 1900 123 20 93 Room Air 02/26 1815 98.2 102 20 128/69 92 Room Air 02/26 1604 Room Air 1.0 02/26 1450 113 20 93 Room Air 02/26 1425 96 20 137/74 93 Nasal 1.0 Cannula 02/26 1041 99.0 94 20 135/84 97 Nasal 1.0 Cannula 02/26 1036 1.0 02/26 0809 1.0 I&O 02/26 0800 02/26 1600 02/27 0000 Intake Total 1457 1968 1651 Output Total 1650 1850 2050 Balance -193 118 -399 General Appearance Oriented X3, Cooperative HEENT EOMI Lungs Clear to auscultation, Normal air movement Cardiovascular Normal S1 and S2, No murmurs, gallops, rubs Abdomen Normal bowel sounds, Soft, No tenderness Assessment and Plan Problem List 1. Bilateral pneumonia Plan Bilateral pneumonia is resolving. She'll be sent home on by mouth antibiotics. This will continue for the next 7 days. She will need to get back to see her primary care provider to review her health issues. He is sent of spirometry. Patient should return if things progressed to get worse. Smoking cessation is has a long list of benefits and that should be attempted. 2. Epigastric abdominal pain Plan Epigastric pain and nausea, vomiting. This is resolving but continues to have issues at times. Patient should find ways to reduce the reflux. Her precautions strongly promoted. 3. Intractable nausea and vomiting Plan Intractable nausea, vomiting is resolving. Sure of causation but improved with current therapy. 4. Bipolar 1 disorder Plan Maintain Home therapeutics. 5. COPD (chronic obstructive pulmonary disease) Plan Current status: Fair, Anticipated discharge date: 02/27/17 Anticipated discharge placement: Home Patient care time: Time spent in chart review, patient interview, physical exam, CPOE, and care documentation: 25 minutes Visit to patient today: 2 Complexity of care:Mild DVT prophylaxis: Lovenox GI prophylaxis; pantoprazole E&M Codes Rounding: Inpt-Low/71055
[2017-02-27 10:50] VITALS: BP 116/66
[2017-02-27 14:30] VITALS: BP 135/96
[2017-02-27 18:15] VITALS: BP 143/98
[2017-02-27] MEDS ORDERED: LEVOFLOXACIN500 MG PO (18:55)
--- NOTE | 2017-02-27 18:58 | Provider's Discharge Care Plan ---
Problem, Goal, Plan Problem List 1. Bilateral pneumonia Goals: Improve disease control Instructions: Follow up as directed, Stop smoking 2. Epigastric abdominal pain Goals: Improve disease control, Improved health/wellness, Improve nutrition status, Prevent disease progress Instructions: Increase activity level, Avoid processed foods, Stop smoking 3. Intractable nausea and vomiting Goals: Improved health/wellness, Improve nutrition status, Therapeutic intervention Instructions: Take meds as directed, Avoid processed foods, Stop smoking 4. Bipolar 1 disorder Goals: Improve disease control, Improve nutrition status, Prevent disease progress Instructions: Follow up as needed, Follow up as directed, Take meds as directed 5. COPD (chronic obstructive pulmonary disease) Goals: Diagnostic testing, Improve disease control, Improved health/wellness Instructions: Follow up as directed, Reduce stress, Stop smoking
--- NOTE | 2017-02-28 08:26 | Discharge Summary ---
Discharge Summary Report Admit Date 02/25/17 Discharge Date 02/27/17 Admission Diagnosis Bilateral pneumonia COPD Nausea, vomiting, intractable Bipolar Discharge Diagnosis Resolving pneumonia Bipolar COPD Resolving nausea, vomiting Brief History The patient is a 52-year-old white female with a significant past medical history of COPD, bipolar disorder, osteoarthritis, restless leg syndrome, nicotine dependence-smoking who presented to [facility] emergency department on the day of admission secondary to complaints of progressive worsening abdominal pain, nausea, vomiting and shortness of breath. [facility] ER evaluation was consistent with bilateral pneumonia. Secondary to the above, the patient was admitted by Eddi Valenzuela MD, for further evaluation and treatment. Hospital Course Patient was initially admitted under observation. The observation admission and became formation once patient had incomplete response to care. Patient was held for oxygen requirements, the patient is a history of COPD with exacerbation and bilateral pneumonia seen on chest x-ray. Patient was started on antibiotics for coverage. Patient quickly reviewed return to normal baseline after 1-2 days of care. Patient also had complaints of nausea and vomiting which was progressive up until admission. This quickly improved with IV fluids and antinausea formulations. Patient however had one incident in which she had difficulty holding down her fluids. Therefore was held down from by mouth for a short time. Patient had appropriate oxygen saturations during which walks and she was able to get up and out to the bathroom without difficulty. Patient quickly improved and was discharged from [facility] to her primary care provider. General Appearance Oriented X3, Cooperative HEENT EOMI Lungs equal air movement, sonorous rhonchi random wheeze. Cardiovascular Normal S1, Normal S2 Abdomen Soft, No tenderness Skin No Breakdown Neurological Normal speech, Cranial nerves 3-12 NL Psych/Mental Status Mental status NL, Mood NL Lab/Imaging Chest x-ray on admission. IMPRESSION: 1. Bibasilar infiltrates suggestive of pneumonia 2. Nonspecific bowel gas pattern. Discharge Instructions/Meds Patient is discharged home on antibiotics and steroid taper. Patient should continue with the taper of steroid until completed. Patient needs to be seen by primary care provider within 2-3 days after discharge. Patient should continue to monitor dietary and promote options for care of her GERD. May consider scoping procedure in the future. Patient should continue with home medicine including; gabapentin 300 mg 4 times per day, aspirin 81 mg by mouth daily. Voltaren topical gel as needed for pain., Clonazepam 0.5 mg at bedtime, potassium 20 mEq as needed with taking Lasix., Lasix 20 mg as needed for swelling. Topamax 100 mg at bedtime., Atorvastatin 40 mg by mouth daily., Methocarbamol 500 mg as needed., Albuterol sulfate HFA inhalation 12 puffs as needed for wheeze every 6 hours. Percocet 10-325 by mouth every 4-6 hours as needed for pain, promethazine 25 mg every 6 hours as needed for nausea, Zofran 4 mg by mouth as needed for nausea. She had instruction to return to the ED or urgent care facility with worsening condition, shortness of breath hypoxia and respiratory distress or other emergent concern.
--- NOTE | 2017-02-28 08:26 | Discharge Summary ---
Discharge Summary Report Admit Date 02/25/17 Discharge Date 02/27/17 Admission Diagnosis Bilateral pneumonia COPD Nausea, vomiting, intractable Bipolar Discharge Diagnosis Resolving pneumonia Bipolar COPD Resolving nausea, vomiting Brief History The patient is a 52-year-old white female with a significant past medical history of COPD, bipolar disorder, osteoarthritis, restless leg syndrome, nicotine dependence-smoking who presented to [facility] emergency department on the day of admission secondary to complaints of progressive worsening abdominal pain, nausea, vomiting and shortness of breath. [facility] ER evaluation was consistent with bilateral pneumonia. Secondary to the above, the patient was admitted by Eddi Valenzuela MD, for further evaluation and treatment. Hospital Course Patient was initially admitted under observation. The observation admission and became formation once patient had incomplete response to care. Patient was held for oxygen requirements, the patient is a history of COPD with exacerbation and bilateral pneumonia seen on chest x-ray. Patient was started on antibiotics for coverage. Patient quickly reviewed return to normal baseline after 1-2 days of care. Patient also had complaints of nausea and vomiting which was progressive up until admission. This quickly improved with IV fluids and antinausea formulations. Patient however had one incident in which she had difficulty holding down her fluids. Therefore was held down from by mouth for a short time. Patient had appropriate oxygen saturations during which walks and she was able to get up and out to the bathroom without difficulty. Patient quickly improved and was discharged from [facility] to her primary care provider. General Appearance Oriented X3, Cooperative HEENT EOMI Lungs equal air movement, sonorous rhonchi random wheeze. Cardiovascular Normal S1, Normal S2 Abdomen Soft, No tenderness Skin No Breakdown Neurological Normal speech, Cranial nerves 3-12 NL Psych/Mental Status Mental status NL, Mood NL Lab/Imaging Chest x-ray on admission. IMPRESSION: 1. Bibasilar infiltrates suggestive of pneumonia 2. Nonspecific bowel gas pattern. Discharge Instructions/Meds Patient is discharged home on antibiotics and steroid taper. Patient should continue with the taper of steroid until completed. Patient needs to be seen by primary care provider within 2-3 days after discharge. Patient should continue to monitor dietary and promote options for care of her GERD. May consider scoping procedure in the future. Patient should continue with home medicine including; gabapentin 300 mg 4 times per day, aspirin 81 mg by mouth daily. Voltaren topical gel as needed for pain., Clonazepam 0.5 mg at bedtime, potassium 20 mEq as needed with taking Lasix., Lasix 20 mg as needed for swelling. Topamax 100 mg at bedtime., Atorvastatin 40 mg by mouth daily., Methocarbamol 500 mg as needed., Albuterol sulfate HFA inhalation 12 puffs as needed for wheeze every 6 hours. Percocet 10-325 by mouth every 4-6 hours as needed for pain, promethazine 25 mg every 6 hours as needed for nausea, Zofran 4 mg by mouth as needed for nausea. She had instruction to return to the ED or urgent care facility with worsening condition, shortness of breath hypoxia and respiratory distress or other emergent concern.
--- NOTE | 2017-03-01 16:27 | ED MED RECONCILIATION SUMMARY ---
Patient: LALA LUNA Medication Reconciliation Report [facility] VisitID: [id number] [place] [address] 52y, F Registration Date/Time: 02/24/2017 Weight: 58.9 kg Height/Length: 63 in. BMI: 23.0 ALLERGIES: Lamictal, Seroquel The patient's Home Medications are listed below: CONTINUE TAKING THE FOLLOWING MEDICATIONS: Albuterol Sulfate HFA Inhalation ASA Oral Atorvastatin Calcium Oral ClonazePAM Oral Gabapentin Oral Lasix Oral Methocarbamol Oral Nicatrol inh Percocet Oral Potassimin Oral Promethazine HCl Oral Topamax Oral Tramadol HCL Oral Voltaren Gel Zofran ODT Oral The source(s) of the original Home Medication information: Not obtained. The following Medications were given to the patient in the Emergency Department: IV NS IV Fluids bolus 1000 mL, then 1000 mL/hr, administered: 02/24/2017 10:57:00 PM Ondansetron [IVP] IVP 4 mg, administered: 02/24/2017 11:05:00 PM Dilaudid [IVP] IVP 0.5 mg, administered: 02/24/2017 11:15:00 PM Pepcid [IVPB] IVPB bolus 0, then 20 mg, administered: 02/24/2017 11:10:00 PM Reglan [IVP] IVP 10 mg, administered: 02/24/2017 11:51:00 PM Ceftriaxone [IVPB] IVPB bolus 0, then 1 gm, administered: 02/24/2017 11:58:00 PM PHENERGAN [IVP] IVP 25 mg, administered: 02/25/2017 1:12:00 AM Benadryl [IVP] IVP 25 mg, administered: 02/25/2017 1:18:00 AM The following Medications were prescribed to the patient: Reglan 10 mg tablets: take 1 orally four times daily as needed for nausea, vomiting or indigestion. Dispense fifteen (15). No refills. Substitution is permissible. -- Alvarez Sr Dr. Levaquin 500 mg: take 1 tab orally every day for 10 days. No refills. Substitution is permissible. -- Alvarez Sr Dr. Tessalon Perles 100 mg: take 1-2 orally every 6 hours as needed for cough. Dispense twenty (20). No refills. Substitution is permissible. -- Alvarez Sr Dr.
--- NOTE | 2017-03-01 16:27 | ED MAR SUMMARY ---
..... Medication Administration Record [facility] [address] [place] [address] Patient: LALA LUNA Visit ID: [id number] 52y, F Weight: 58.9 kg Height/Length: 63 in BMI: 23 ALLERGIES: Lamictal, Seroquel Start 22:57 02/24/2017 Alis Miller R.N., Stop 23:40 02/24/2017 Alis Miller R.N. Medication Administered: IV NS (SALINE), Dose: IV Fluids, Rate: 1000 mL/hr, Bolus: 1000 mL, Site: #1 left AC. Medication Ordered: IV NS with Normal Saline 1 Liter: initial bolus 1000 mL (1000 mL/hr), then 1000 mL/hr (NOW). Given 23:05 02/24/2017 Alis Miller R.N. Medication Administered: ONDANSETRON [IVP] (ONDANSETRON HCL), Dose: 4 mg IVP, Site: #1 left AC. Medication Ordered: Ondansetron IV 4 mg (NOW). Start 23:10 02/24/2017 Alis Miller R.N., Stop 23:30 02/24/2017 Alis Miller R.N. Medication Administered: PEPCID [IVPB], Dose: 20 mg IVPB over 20 minute(s), Site: #1 left AC. Medication Ordered: Pepcid IV 20 mg/50mL (NOW). Given 23:15 02/24/2017 Alis Miller R.N. Medication Administered: DILAUDID [IVP] (HYDROMORPHONE HCL PF), Dose: 0.5 mg IVP, Site: #1 left AC. Medication Ordered: Dilaudid IV 0.5 mg (HIGH ALERT MEDICATION, NOW). Given 23:51 02/24/2017 Alis Miller R.N. Medication Administered: REGLAN [IVP] (METOCLOPRAMIDE HCL), Dose: 10 mg IVP over 4 minute(s), Site: #1 left AC. Medication Ordered: Reglan IV 10 mg (NOW). Start 23:58 02/24/2017 Alis Miller R.N., Stop 00:37 02/25/2017 Alis Miller R.N. Medication Administered: CEFTRIAXONE [IVPB], Dose: 1 gm IVPB over 20 minute(s), Dispensed: 50 mL bag, Site: #1 left AC. Medication Ordered: Ceftriaxone IV 1 gm/50mL (NOW). Given 01:12 02/25/2017 Simran Encinas R.N. Medication Administered: PHENERGAN [IVP] (PROMETHAZINE HCL), Dose: 25 mg IVP over 4 minute(s), Site: #1 left AC. Medication Ordered: Phenergan IV 25 mg (HIGH ALERT MEDICATION, NOW). Given 01:18 02/25/2017 Simran Encinas R.N. Medication Administered: BENADRYL [IVP] (DIPHENHYDRAMINE HCL), Dose: 25 mg IVP over 2 minute(s), Site: #1 left AC. Medication Ordered: Benadryl IV 25 mg (NOW).
--- NOTE | 2017-03-01 16:27 | ED DISCHARGE INSTRUCTIONS ---
Patient: LALA LUNA General Instructions [facility] VisitID: [id number] [place] [address] 52y, F Registration Date/Time: 02/24/2017 Bacterial pneumonia. Vital signs recorded and reviewed; empiric antibiotics given in the ED and prescribed. Subacute noninfectious gastroenteritis. anemia chronic. INSTRUCTIONS Rest for three days until better. Take clear liquids only for the next 12 hours. No alcohol. Do not smoke. Warnings: Further evaluation is necessary. Your Current Medications: CONTINUE TAKING THE FOLLOWING MEDICATIONS: Albuterol Sulfate HFA Inhalation. ASA Oral. Atorvastatin Calcium Oral. ClonazePAM Oral. Gabapentin Oral. Lasix Oral. Methocarbamol Oral. Nicatrol inh*. Percocet Oral. Potassimin Oral. Promethazine HCl Oral. Topamax Oral. Tramadol HCL Oral. Voltaren Gel*. Zofran ODT Oral. Prescription Medications: Reglan 10 mg tablets: take 1 orally four times daily as needed for nausea, vomiting or indigestion. Dispense fifteen (15). No refills. Substitution is permissible. Levaquin 500 mg: take 1 tab orally every day for 10 days. No refills. Substitution is permissible. Tessalon Perles 100 mg: take 1-2 orally every 6 hours as needed for cough. Dispense twenty (20). No refills. Substitution is permissible. Understanding of the discharge instructions verbalized by patient. ADDITIONAL INFORMATION Pneumonia (Adult) Pneumonia is an infection deep within the lung, in the small air sacs (alveoli). It may be due to a virus or bacteria and is usually treated with an antibiotic. Severe cases require treatment in the hospital. Milder cases can be treated at home. Symptoms usually start to improve during the first2 days of treatment. Home Care: Rest at home for the first 23 days or until you feel stronger. When resuming activity, dont let yourself become overly tired. Avoid exposure to cigarette smoke (yours or others). You may use acetaminophen (Tylenol) or ibuprofen (Motrin, Advil) to control fever or pain, unless another medicine was prescribed. [NOTE: If you have chronic liver or kidney disease or ever had a stomach ulcer or GI bleeding, talk with your doctor before using these medicines.] (Aspirin should never be used in anyone under 18 years of age who is ill with a fever. It may cause severe liver damage.) Your appetite may be poor so a light diet is fine. Keep well hydrated by drinking 68 glasses of fluids per day (water, sport drinks such as Gatorade, sodas without caffeine, juices, tea, soup, etc.). This will help loosen secretions in the lung, making it easier for you to cough up the phlegm (sputum). If you also have heart or kidney disease, check with your doctor before you drink extra amounts of fluids. Finish all antibiotic medicine prescribed, even if you are feeling better after a few days. Follow Up with your doctor in the next 23 days (or as advised) to be sure you are responding properly to the medicine. [NOTE: If you are age 65 or older, or if you have chronic lung disease (asthma, emphysema or COPD), we recommendthe pneumococcal vaccination and a yearlyinfluenzavaccination(flu-shot) every . Ask your doctor about this.] Get Prompt Medical Attention if any of the following occur: Not getting better within the first 48 hours of treatment Increasing shortness of breath or rapid breathing (over 25 breaths/minute) Coughing up blood or increasing chest pain with breathing Fever of 100.4F (38C) oral or higher, not better with fever medication Increasing weakness, dizziness or fainting Increasing thirst or dry mouth Sinus pain, headache or a stiff neck Chest pain not caused by coughing You have been given the following additional information: Pneumonia (Adult) Rest for three days until better. (Electronically signed by Alvarez Sr Dr. 03/01/2017 16:27)
--- NOTE | 2017-03-01 16:27 | ED MED RECONCILIATION SUMMARY ---
Patient: LALA LUNA Medication Reconciliation Report [facility] VisitID: [id number] [place] [address] 52y, F Registration Date/Time: 02/24/2017 Weight: 58.9 kg Height/Length: 63 in. BMI: 23.0 ALLERGIES: Lamictal, Seroquel The patient's Home Medications are listed below: CONTINUE TAKING THE FOLLOWING MEDICATIONS: Albuterol Sulfate HFA Inhalation ASA Oral Atorvastatin Calcium Oral ClonazePAM Oral Gabapentin Oral Lasix Oral Methocarbamol Oral Nicatrol inh Percocet Oral Potassimin Oral Promethazine HCl Oral Topamax Oral Tramadol HCL Oral Voltaren Gel Zofran ODT Oral The source(s) of the original Home Medication information: Not obtained. The following Medications were given to the patient in the Emergency Department: IV NS IV Fluids bolus 1000 mL, then 1000 mL/hr, administered: 02/24/2017 10:57:00 PM Ondansetron [IVP] IVP 4 mg, administered: 02/24/2017 11:05:00 PM Dilaudid [IVP] IVP 0.5 mg, administered: 02/24/2017 11:15:00 PM Pepcid [IVPB] IVPB bolus 0, then 20 mg, administered: 02/24/2017 11:10:00 PM Reglan [IVP] IVP 10 mg, administered: 02/24/2017 11:51:00 PM Ceftriaxone [IVPB] IVPB bolus 0, then 1 gm, administered: 02/24/2017 11:58:00 PM PHENERGAN [IVP] IVP 25 mg, administered: 02/25/2017 1:12:00 AM Benadryl [IVP] IVP 25 mg, administered: 02/25/2017 1:18:00 AM The following Medications were prescribed to the patient: Reglan 10 mg tablets: take 1 orally four times daily as needed for nausea, vomiting or indigestion. Dispense fifteen (15). No refills. Substitution is permissible. -- Alvarez Sr Dr. Levaquin 500 mg: take 1 tab orally every day for 10 days. No refills. Substitution is permissible. -- Alvarez Sr Dr. Tessalon Perles 100 mg: take 1-2 orally every 6 hours as needed for cough. Dispense twenty (20). No refills. Substitution is permissible. -- Alvarez Sr Dr.
--- NOTE | 2017-03-01 16:27 | ED MAR SUMMARY ---
..... Medication Administration Record [facility] [address] [place] [place] [address] Patient: LALA LUNA Visit ID: [id number] 52y, F Weight: 58.9 kg Height/Length: 63 in BMI: 23 ALLERGIES: Lamictal, Seroquel Start 22:57 02/24/2017 Alis Miller R.N., Stop 23:40 02/24/2017 Alis Miller R.N. Medication Administered: IV NS (SALINE), Dose: IV Fluids, Rate: 1000 mL/hr, Bolus: 1000 mL, Site: #1 left AC. Medication Ordered: IV NS with Normal Saline 1 Liter: initial bolus 1000 mL (1000 mL/hr), then 1000 mL/hr (NOW). Given 23:05 02/24/2017 Alis Miller R.N. Medication Administered: ONDANSETRON [IVP] (ONDANSETRON HCL), Dose: 4 mg IVP, Site: #1 left AC. Medication Ordered: Ondansetron IV 4 mg (NOW). Start 23:10 02/24/2017 Alis Miller R.N., Stop 23:30 02/24/2017 Alis Miller R.N. Medication Administered: PEPCID [IVPB], Dose: 20 mg IVPB over 20 minute(s), Site: #1 left AC. Medication Ordered: Pepcid IV 20 mg/50mL (NOW). Given 23:15 02/24/2017 Alis Miller R.N. Medication Administered: DILAUDID [IVP] (HYDROMORPHONE HCL PF), Dose: 0.5 mg IVP, Site: #1 left AC. Medication Ordered: Dilaudid IV 0.5 mg (HIGH ALERT MEDICATION, NOW). Given 23:51 02/24/2017 Alis Miller R.N. Medication Administered: REGLAN [IVP] (METOCLOPRAMIDE HCL), Dose: 10 mg IVP over 4 minute(s), Site: #1 left AC. Medication Ordered: Reglan IV 10 mg (NOW). Start 23:58 02/24/2017 Alis Miller R.N., Stop 00:37 02/25/2017 Alis Miller R.N. Medication Administered: CEFTRIAXONE [IVPB], Dose: 1 gm IVPB over 20 minute(s), Dispensed: 50 mL bag, Site: #1 left AC. Medication Ordered: Ceftriaxone IV 1 gm/50mL (NOW). Given 01:12 02/25/2017 Simran Encinas R.N. Medication Administered: PHENERGAN [IVP] (PROMETHAZINE HCL), Dose: 25 mg IVP over 4 minute(s), Site: #1 left AC. Medication Ordered: Phenergan IV 25 mg (HIGH ALERT MEDICATION, NOW). Given 01:18 02/25/2017 Simran Encinas R.N. Medication Administered: BENADRYL [IVP] (DIPHENHYDRAMINE HCL), Dose: 25 mg IVP over 2 minute(s), Site: #1 left AC. Medication Ordered: Benadryl IV 25 mg (NOW).
== END 2017-02-27 19:18 | disposition home or self-care (01) ==
LOC: ED SRH 22:24 → TRANS SRH 02-25 02:23 → ACUTE2 SRH 02-25 03:35
PROVIDERS: ADMIT Student in an Organized Health Care Education/Training Program
DX: J44.0 Chronic obstructive pulmonary disease with (acute) lower respiratory infection (principal); J18.9 Pneumonia, unspecified organism; R11.2 Nausea with vomiting, unspecified; R10.13 Epigastric pain; R22.43 Localized swelling, mass and lump, lower limb, bilateral; F17.210 Nicotine dependence, cigarettes, uncomplicated; F31.9 Bipolar disorder, unspecified; G25.81 Restless legs syndrome
CPT/HCPCS: 29230; 29244; 29247; 29250; 29251; 29263; 85241; 90004; 90074; 90100; 90934; 92235; 92530; 92720; 94060; 95059

== ENCOUNTER 2017-04-30 22:58 | Observation (INO) | payer MEDICARE ==
[~2017-04-30] VITALS: Ht 160 cm; Wt 62.8 kg
[~2017-04-30 22:58] MED LIST: ASPIRIN PO; CLONAZEPAM0.5 MG PO; FUROSEMIDE20 MG PO; GABAPENTIN300 MG PO; KLOR-CON 1010 MEQ PO; LEVOFLOXACIN500 MG PO; METHOCARBAMOL500 MG PO; OMEPRAZOLE40 MG PO; PERCOCET1 TA1 PO; PHENERGAN EQUIV25 MG PO; RANITIDINE HCL300 MG PO; TOPAMAX100 MG PO; TRAMADOL HCL50 MG PO
--- NOTE | 2017-05-01 03:42 | ED CLINICAL REPORT ---
Clinical Report - Physicians/Mid Levels Formerly [facility] [address] [address] 04/30/2017 22:59 Patient: LALA LUNA Time Seen: 0043. Arrived- By private vehicle. Historian- patient. HISTORY OF PRESENT ILLNESS Chief Complaint: FEVER. This started past few days and is still present. Fever was gradual in onset and has been intermittent but not measured. It is not gone now. The patient has had a cough. Additional history - No known contact with a sick individual. Has not recently been ill. She is not immunocompromised. No recent hospitalization. No new medication recently administered. No recent travel. No known exposure to an animal. +n/v described as nbnb. Similar symptoms previously: Once. Recent medical care: Not recently seen/assessed. REVIEW OF SYSTEMS No weight loss, palpitations, black stools, difficulty with urination or flank pain. No sore throat. All systems otherwise negative, except as recorded above. PAST HISTORY See nurses notes. Medications: Methocarbamol Oral 500 mg, 4x a day. Nicatrol inh. Percocet Oral 10/325 mg, 5 x daily. Potassimin Oral (takes PRN with Lasix). Promethazine HCl Oral, as needed (pt unsure of dose ). Topamax Oral 300mg , at bedtime. Tramadol HCL Oral 50 mg, 4x a day. Voltaren Gel. Zofran ODT Oral (Tablet Dispersible 4 mg) 1 tablet, as needed. Albuterol Sulfate HFA Inhalation 2 puffs, as needed. ASA Oral 81mg , daily. Atorvastatin Calcium Oral, daily (pt unsure of dose ). ClonazePAM Oral 1 mg, at bedtime. Gabapentin Oral 300 mg, 4x a day. Lasix Oral, as needed (pt unsure of dose ). Allergies: Lamictal. Seroquel. SOCIAL HISTORY Smoker- current status unknown. Not exposed to second-hand smoke at home. No alcohol use or drug use. No recent travel. Is a local resident. ADDITIONAL NOTES The nursing notes have been reviewed. PHYSICAL EXAM Vital Signs: 05/01/2017 04:23 BP: 163/92. HR: 102. RR: 19. O2 saturation: 92%. Pain level now: 8/10. Oxygen saturation normal. Appearance: Alert. No acute distress. Eyes: Pupils equal, round and reactive to light. Eyes normal inspection. ENT: Ears normal. Nose normal. Pharynx normal. Uvula midline. Neck: Normal inspection. Neck supple. CVS: Normal heart rate and rhythm. Heart sounds normal. Pulses normal. Respiratory: No respiratory distress. Rhonchi present in the right lung base posteriorly. Breath sounds normal. Chest nontender. No wheezes or prolonged expiration. Abdomen: Soft and nontender. Bowel sounds normal. Skin: Skin warm and dry. Normal skin color. No rash. Normal skin turgor. Extremities: Extremities exhibit normal ROM. Extremities nontender. Neuro: Oriented X 3. No motor deficit. No sensory deficit. (normal gait). LABS, X-RAYS, AND EKG Chest X-ray: (PROCEDURE: XR CHEST 2 VIEW INDICATION: FEVER TECHNIQUE: PA and lateral view. COMPARISON: None. FINDINGS: Small right basilar infiltrate. Normal left lung. Cardiovascular structures are normal. Mild levoconvex thoracolumbar spine scoliosis with moderate degenerative changes. IMPRESSION: 1. Right basilar pneumonia.). The X-rays were independently viewed by me and interpreted by the radiologist. The X-rays were discussed with the radiologist (via pacs). Laboratory Tests: CBC w Diff: (TIFFANIE: 05/02/2017 05:45) ( MsgRcvd 05/02/2017 05:53) Final results Test Result Flag Units (Reference) WHITE BLOOD COUNT 5.6 K/uL (4.5-11.5) RED BLOOD COUNT 3.83 L M/uL (4.00-5.20) HEMOGLOBIN 8.7 L gm/dL (12.0-16.0) HEMATOCRIT 28.4 L % (36.0-46.0) MEAN CELL VOLUME 74 L fL (80-100) MEAN CORPUSCULAR HGB 23 L pg (26-34) MEAN CORPUSCULAR HGB CONC 31 g/dL (31-37) RED CELL DISTRIBUTION WIDTH 19.3 H % (11.6-14.8) PLATELET COUNT 456 H K/uL (150-400) NEUTROPHIL % 39.0 L % (50-75) LYMPH % 47.9 H % (25-40) MONO % 9.0 % (3-14) EOSINOPHIL % 3.4 % (0-4) BASOPHIL % 0.7 % (0-2) CMP: (TIFFANIE: 05/02/2017 05:45) ( IdgRcvd 05/02/2017 06:12) Final results Test Result Flag Units (Reference) GLUCOSE 96 mg/dL (70-110) BUN 5 L mg/dL (7-18) CREATININE 0.7 mg/dL (0.6-1.3) Estimated GFR >60 mL/min Estimated GFR- >60 mL/min Note: Persistent reduction over 3 months in eGFR<60 mL/min/1.73 m2 defines CKD. Patients with eGFR values>=60 mL/min/1.73 m2 may also have CKD if evidence ofpersistent proteinuria. Additional information may be foundat www.kidney.org. SODIUM 143 mmol/L (136-145) POTASSIUM 3.6 # mmol/L (3.5-5.1) CHLORIDE 112 H mmol/L (98-107) CARBON DIOXIDE 22 mmol/L (21-32) CALCIUM 8.1 L mg/dL (8.5-10.1) TOTAL PROTEIN 5.9 L g/dL (6.4-8.2) ALBUMIN 2.9 L g/dL (3.3-5.0) BILIRUBIN, TOTAL 0.3 mg/dL (0.0-1.0) ALKALINE PHOSPHATASE 67 U/L (46-116) AST (SGOT) 10 L U/L (15-37) ALT (SGPT) 16 U/L (12-78) UA-Culture if indicated: (TIFFANIE: 05/01/2017 00:38) ( [facility] Final results Test Result Flag Units (Reference) URINE COLOR ASHLEY URINE APPEARANCE CLEAR URINE GLUCOSE NEGATIVE (NEGATIVE) URINE BILIRUBIN 1+ (NEGATIVE) URINE KETONE TRACE (NEGATIVE) URINE SPECIFIC GRAVITY 1.025 (1.010-1.030) URINE PH 5.5 (5.0-8.0) URINE PROTEIN TRACE (NEGATIVE) URINE UROBILINOGEN 0.2 EU/dL (0.2-1.0) URINE NITRITE NEGATIVE (NEGATIVE) URINE BLOOD NEGATIVE (NEGATIVE) URINE LEUK ESTERASE NEGATIVE (NEGATIVE) URINE RBC NONE SEEN rbc/hpf (0-1) URINE WBC 1-3 wbc/hpf (0-1) URINE EPITHELIAL CELLS 1-3 EPI/hpf (0-5) URINE BACTERIA TRACE (<1+) (NONE SEEN) URINE COMMENT CULT NOT INDICATED ICTO TEST NEG3-5 HYALINE CAST PER HIGH POWER FIELD(x40).URINE CULTURES ARE SET-UP BASED ON THE FOLLOWING CRITERIA:POSITIVE NITRITEPOSITIVE LEUKOCYTE ESTERASEGREATER THAN 10 WHITE BLOOD CELLSMODERATE (2+) OR GREATER BACTERIA CBC w Diff: (TIFFANIE: 05/01/2017 00:15) ( [facility] 05/01/2017 01:31) Final results Test Result Flag Units (Reference) WHITE BLOOD COUNT 6.2 K/uL (4.5-11.5) RED BLOOD COUNT 4.06 M/uL (4.00-5.20) HEMOGLOBIN 9.1 L gm/dL (12.0-16.0) HEMATOCRIT 29.9 L % (36.0-46.0) MEAN CELL VOLUME 74 L fL (80-100) MEAN CORPUSCULAR HGB 23 L pg (26-34) MEAN CORPUSCULAR HGB CONC 31 g/dL (31-37) RED CELL DISTRIBUTION WIDTH 19.1 H % (11.6-14.8) PLATELET COUNT 389 K/uL (150-400) LYMPH % 35.1 % (25-40) MONO % 5.5 % (3-14) GRANULOCYTE % 59.4 % (53-90) [id number]: (TIFFANIE: 05/01/2017 07:40) ( [facility] 05/01/2017 08:37) Final results Test Result Flag Units (Reference) VITAMIN B12 529 pg/mL (211-946) FOLATE 32.1 ng/mL (>3.0) [id number]: (TIFFANIE: 05/01/2017 07:40) ( [facility] 05/01/2017 08:54) Final results Test Result Flag Units (Reference) IRON 24 L ug/dL (35-150) TOTAL IRON BINDING CAPACITY 349 ug/dL (260-445) % SATURATION 7 L % (15-50) [id number]: (TIFFANIE: 05/01/2017 00:15) ( MsgRcvd 05/01/2017 04:31) Final results Test Result Flag Units (Reference) PROCALCITONIN <0.5 ng/mL (0-0.5) PCT Concentration: Interpretation : Risk/option for action PCT <=0.5 ng/mL : Systemic : Low risk forinfection(sepsis): progression to severeis not likely. : systemic infection.Local bacterial : CAUTION-PCT levelsinfection is : below 0.5 ng/mL do notpossible. : exclude an infection,because localizedinfections (withoutsystemic signs) may beassociated with suchlow levels. If PCT ismeasured very earlyafter a bacterialchallenge (usually <6hours), these valuesmay still be low. Inthis case PCT shouldbe re-assessed 6-24hours later. PCT >0.5 and : Systemic infection: Moderate risk for<= 2 ng/mL : (sepsis) is : progression to severepossible, but : systemic infection.other conditions : The patient should beare known to : closely monitoredelevate PCT. : both clinically andby re-assessing PCTwithin 6-24 hours. PCT > 2 ng/mL : Systemic infection: High risk for(sepsis) is likely: progression to severeunless other : systemic infection.causes are known. : PCT >= 10 ng/mL : Important systemic: High likelihood ofinflammatory : severe sepsis orresponse, almost : septic shock.exclusively due to:severe bacterial :sepsis or septic :shock. : CMP: (TIFFANIE: 05/01/2017 00:15) ( MsgRcvd 05/01/2017 01:02) Final results Test Result Flag Units (Reference) GLUCOSE 103 mg/dL (70-110) BUN 9 mg/dL (7-18) CREATININE 0.9 mg/dL (0.6-1.3) Estimated GFR >60 mL/min Estimated GFR- >60 mL/min Note: Persistent reduction over 3 months in eGFR<60 mL/min/1.73 m2 defines CKD. Patients with eGFR values>=60 mL/min/1.73 m2 may also have CKD if evidence ofpersistent proteinuria. Additional information may be foundat www.kidney.org. SODIUM 142 mmol/L (136-145) POTASSIUM 4.4 mmol/L (3.5-5.1) CHLORIDE 106 mmol/L (98-107) CARBON DIOXIDE 25 mmol/L (21-32) CALCIUM 8.5 mg/dL (8.5-10.1) TOTAL PROTEIN 7.0 g/dL (6.4-8.2) ALBUMIN 3.3 g/dL (3.3-5.0) BILIRUBIN, TOTAL 0.6 mg/dL (0.0-1.0) ALKALINE PHOSPHATASE 79 U/L (46-116) AST (SGOT) 57 H U/L (15-37) ALT (SGPT) 25 U/L (12-78) . PROGRESS AND PROCEDURES Course of Care: the patient is a pleasant 52 yo female presenting for evaluation of fever. patient non-toxic and in no acute distress. work up + for RLL pneumonia. No recent abx use. patient low risk on CURB 65. PO abx ordered. Patient states she can not go home like this. Reports no caregiver at home. Normally lives independently. After reviewing admission criteria, patient agreeable to trial of PO abx. Patient did not tolerate PO abx and vomited. Abx IV ordered. Discussed case with hospitalist who will accept aptient. requested PCT first. PCT negative. Do not feel patient needs ICU level of care. No signs of SIRS or sepsis. Patient stable on admission. Disposition: Observation. CLINICAL IMPRESSION right lower lobe pneumonia, acute acute nausea and vomiting. (Electronically signed by Alvarez Sr Dr. 05/03/2017 21:48)
--- NOTE | 2017-05-01 03:42 | ED ORDER SUMMARY ---
..... Patient: LALA LUNA OrderSheet [facility] VisitID: [id number] [place] [address] 52y, F Registration Date/Time: 04/30/2017 ORDER SHEET Weight: 56.6 kg (stated) Allergies: Lamictal, Seroquel GENERAL ORDERS: CBC w Diff Urgent (00:05/01/2017 JQuivey R.N. per protocol) (Ack 0:42 LMuller) (0:44 JQuivey R.N.) CMP Urgent (00:05/01/2017 JQuivey R.N. per protocol) (Ack 0:42 LMuller) (0:44 JQuivey R.N.) UA-Culture if indicated Urgent (00:05/01/2017 JQuivey R.N. per protocol) (Ack 0:42 LMuller) (0:44 JQuivey R.N.) EKG - ER Stat (00:05/01/2017 JQuivey R.N. per protocol) (Ack 0:42 LMuller) (0:44 JQuivey R.N.) Chest 2V Urgent (01:44 05/01/2017 Tia Jaime) (Ack 1:49 LMuller) (2:04 GUnger) PCT (Procalcitonin) Urgent (03:51 05/01/2017 Tia Jaime) (4:09 JQuivey R.N.) MEDICATION ORDERS: Phenergan IV 25 mg (HIGH ALERT MEDICATION, NOW) (01:44 05/01/2017 Tia Jaime) (Ack 1:45 JQuivey R.N.) (1:54 JQuivey R.N.) Tylenol PO 650 mg (NOW) (02:57 05/01/2017 Tia Jaime) (Ack 3:05 JQuivey R.N.) (3:10 JQuivey R.N.) Azithromycin PO 500 mg (NOW) (02:57 05/01/2017 Tia Jaime) (Ack 3:05 JQuivey R.N.) (3:10 JQuivey R.N.) Ativan PO 1 mg (NOW) (03:11 05/01/2017 JQuivey R.N. verbal order read back to Tia Jaime) (3:12 JQuivey R.N.) IV FLUIDS: IV Saline Lock (00:22 05/01/2017 JQuivey R.N. per protocol) (0:22 JQuivey R.N.) Zofran IV 4 mg (NOW) (00:44 05/01/2017 JQuivey R.N. per protocol) (0:44 JQuivey R.N.) Morphine IV 8 mg (HIGH ALERT MEDICATION, NOW) (01:44 05/01/2017 Tia Jaime) (Ack 1:45 JQuivey R.N.) (1:55 JQuivey R.N.) Ativan IV 1 mg (HIGH ALERT MEDICATION, NOW) (03:03 05/01/2017 Tia Jaime) (Ack 3:05 JQuivey R.N.) (Cancelled: Other3:11 JQuivey R.N.) Ceftriaxone IV 2 gm/50mL (NOW) (03:36 05/01/2017 iTa Jaime) (3:46 JQuivey R.N.) Azithromycin IV 500 mg/250 mL (NOW) (03:36 05/01/2017 Tia Jaime) (Ack 3:46 JQuivey R.N.) (4:23 JQuivey R.N.) Morphine IV 8 mg (HIGH ALERT MEDICATION, NOW) (04:01 05/01/2017 Tia Jaime) (Ack 4:09 JQuivey R.N.) (4:22 JQuivey R.N.) ORDER SHEET NOTES: [Electronically signed by Srikanth Shea R.N. (06:13 05/01/2017)] [Electronically signed by Alvarez Sr Dr. (21:48 05/03/2017)] [Electronically locked/signed by Srikanth Shea R.N. (06:13 05/01/2017)]
--- NOTE | 2017-05-01 03:42 | ED ORDER SUMMARY ---
..... Patient: LALA LUNA OrderSheet [facility] VisitID: [id number] [place] [address] 52y, F Registration Date/Time: 04/30/2017 ORDER SHEET Weight: 56.6 kg (stated) Allergies: Lamictal, Seroquel GENERAL ORDERS: CBC w Diff Urgent (00:05/01/2017 JQuivey R.N. per protocol) (Ack 0:42 LMuller) (0:44 JQuivey R.N.) CMP Urgent (00:05/01/2017 JQuivey R.N. per protocol) (Ack 0:42 LMuller) (0:44 JQuivey R.N.) UA-Culture if indicated Urgent (00:05/01/2017 JQuivey R.N. per protocol) (Ack 0:42 LMuller) (0:44 JQuivey R.N.) EKG - ER Stat (00:05/01/2017 JQuivey R.N. per protocol) (Ack 0:42 LMuller) (0:44 JQuivey R.N.) Chest 2V Urgent (01:44 05/01/2017 Tia Jaime) (Ack 1:49 LMuller) (2:04 GUnger) PCT (Procalcitonin) Urgent (03:51 05/01/2017 Tia Jaime) (4:09 JQuivey R.N.) MEDICATION ORDERS: Phenergan IV 25 mg (HIGH ALERT MEDICATION, NOW) (01:44 05/01/2017 Tia Jaime) (Ack 1:45 JQuivey R.N.) (1:54 JQuivey R.N.) Tylenol PO 650 mg (NOW) (02:57 05/01/2017 Tia Jaime) (Ack 3:05 JQuivey R.N.) (3:10 JQuivey R.N.) Azithromycin PO 500 mg (NOW) (02:57 05/01/2017 Tia Jaime) (Ack 3:05 JQuivey R.N.) (3:10 JQuivey R.N.) Ativan PO 1 mg (NOW) (03:11 05/01/2017 JQuivey R.N. verbal order read back to Tia Jaime) (3:12 JQuivey R.N.) IV FLUIDS: IV Saline Lock (00:22 05/01/2017 JQuivey R.N. per protocol) (0:22 JQuivey R.N.) Zofran IV 4 mg (NOW) (00:44 05/01/2017 JQuivey R.N. per protocol) (0:44 JQuivey R.N.) Morphine IV 8 mg (HIGH ALERT MEDICATION, NOW) (01:44 05/01/2017 Tia Jaime) (Ack 1:45 JQuivey R.N.) (1:55 JQuivey R.N.) Ativan IV 1 mg (HIGH ALERT MEDICATION, NOW) (03:03 05/01/2017 Tai Jaime) (Ack 3:05 JQuivey R.N.) (Cancelled: Other3:11 JQuivey R.N.) Ceftriaxone IV 2 gm/50mL (NOW) (03:36 05/01/2017 Tia Jaime) (3:46 JQuivey R.N.) Azithromycin IV 500 mg/250 mL (NOW) (03:36 05/01/2017 Tia Jaime) (Ack 3:46 JQuivey R.N.) (4:23 JQuivey R.N.) Morphine IV 8 mg (HIGH ALERT MEDICATION, NOW) (04:01 05/01/2017 Tia Jaime) (Ack 4:09 JQuivey R.N.) (4:22 JQuivey R.N.) ORDER SHEET NOTES: [Electronically signed by Srikanth Shea R.N. (06:13 05/01/2017)] [Electronically signed by Alvarez Sr Dr. (21:48 05/03/2017)] [Electronically locked/signed by Srikanth Shea R.N. (06:13 05/01/2017)]
--- NOTE | 2017-05-01 03:42 | ED NURSING NOTES ---
Clinical Report - Nurses [facility] [address] [place] [address] 04/30/2017 22:59 [id number] Triage time 00:00. Acuity: LEVEL 3. Chief Complaint: NAUSEA and VOMITING (Fainting spell, lack of appetite). 00:11. Alert. SEPSIS SCREEN: Sepsis Screen. Negative (no infection suspected/documented). DEVYN COMA SCORE: Devyn Coma Scale: 15- eyes open spontaneously (4); best verbal response- oriented x 4 (5); best motor response- obeys commands (6). --00:12 Srikanth Shea R.N. 00:00 05/01/17. BP: 165/101. HR: 94. RR: 17. O2 saturation: 97% on room air. Temp: 99.6 F (oral). Pain level now: 08/14. --00:12 Srikanth Shea R.N. Weight: 56.6 kg stated. Height/Length: 63 inches Per Patient. BMI: 22.1. --00:09 Srikanth Shea R.N. Medications Albuterol Sulfate HFA Inhalation 2 puffs, as needed. ASA Oral 81mg , daily. Atorvastatin Calcium Oral, daily (pt unsure of dose ). ClonazePAM Oral 1 mg, at bedtime. Gabapentin Oral 300 mg, 4x a day. Lasix Oral, as needed (pt unsure of dose ). --00:03 Srikanth Shea R.N. Methocarbamol Oral 500 mg, 4x a day. Nicatrol inh. Percocet Oral 10/325 mg, 5 x daily. Potassimin Oral (takes PRN with Lasix). Promethazine HCl Oral, as needed (pt unsure of dose ). Topamax Oral 300mg , at bedtime. Tramadol HCL Oral 50 mg, 4x a day. Voltaren Gel. Zofran ODT Oral (Tablet Dispersible 4 mg) 1 tablet, as needed. --00:03 Srikanth Shea R.N. Medication/allergy information source: the patient. --00:12 Srikanth Shea R.N. Allergies Lamictal. --00:03 Srikanth Shea R.N. Seroquel. --00:03 Srikanth Shea R.N. History Arrived by private vehicle. Historian: patient. Accompanied by family. Primary physician (Rubén). Onset. (Last Sunday). ( Patient reports having several fainting spells daily, hasn't been able to keep her pain meds down). PAST MEDICAL HX: Immunizations: up-to-date. The patient is post-menopausal. SOCIAL HX: Current every day light tobacco smoker- less than 1/2 a pack per day. No alcohol use or drug use. No infectious disease exposure. ABUSE ASSESSMENT: No report of abuse. FALL RISK ASSESSMENT: Fall risk assessment completed. No fall risk identified. NUTRITIONAL RISK ASSESSMENT: The nutritional risk assessment revealed no deficiencies. FUNCTIONAL ASSESSMENT: Functional assessment: no impairments noted. LEARNING NEEDS ASSESSMENT: The learning needs assessment revealed no barriers. SKIN INTEGRITY ASSESSMENT: Skin integrity risk assessment completed. No skin integrity risk identified. --00:12 Srikanth Shea R.N. PROBLEMS: Pneumonia. Gastroenteritis. Peptic Ulcer Disease. Degenerative Joint Disease. Asthma. Bipolar Disorder. Depression. Hypercholesterolemia. --00:08 Srikanth Shea R.N. ADDITIONAL SURGERIES: Back Surgery. Bilateral Tubal Ligation. Cholecystectomy. Hip Surgery. Oophorectomy. --00:08 Srikanth Shea R.N. Interventions ID band on patient. To treatment room. --00:12 Srikanth Shea R.N. PHYSICAL ASSESSMENT 00:13. Ambulatory to room. Patient gowned. GENERAL / NEURO / PSYCH: Alert. Oriented X 4. HEENT: No facial asymmetry noted. Mucous membranes are pink. RESPIRATORY: Respirations not labored. SKIN: Skin intact. Skin is warm and dry. Normal skin turgor. --00:13 Srikanth Shea R.N. NURSING PROGRESS NOTES 00:13. Head of bed elevated. Two patient identifiers checked. Call light placed in reach. Side rails up x 1. Bed placed in lowest position. Brakes of bed on. Patient ready for evaluation- chart flagged. --00:13 Srikanth Shea R.N. EKG time: (0010). EKG was performed by a tech and shown to the ED physician. --00:14 Srikanth Shea R.N. 00:17 05/01/2017 Site #1 started via IV in the right hand with an 20g angiocath, with aseptic technique and good blood return; one attempt. Blood drawn: rainbow set. Labeled in the presence of the patient and sent to the lab. Saline lock flushed with 10 mL saline. --00:22 Srikanth Shea R.N. 00:32 Patient assisted to restroom. --00:37 Srikanth Shea R.N. 00:37. Patient ID band checked for patient name and birthdate: patient confirmed. Clean catch urine collected with return of mattie-colored clear urine; sample sent to lab for urinalysis. Specimen labeled in the presence of the patient. --00:43 Srikanth Shea R.N. 00:39 Patient vomited. --00:43 Srikanth Shea R.N. 00:41 05/01/2017 Zofran (Ondansetron HCl) IVP 4 mg given over 2 minute(s) via site #1. Allergies verified and confirmed 5 rights. IV patency established. IV site checked: no pain, redness, or swelling. IV flushed thoroughly pre- and post-medication administration. --00:44 Srikanth Shea R.N. 01:48 05/01/2017 PHENERGAN (Promethazine HCl) IVP 25 mg given over 2 minute(s) via site #1. Allergies verified and confirmed 5 rights. IV patency established. IV site checked: no pain, redness, or swelling. IV flushed thoroughly pre- and post-medication administration. --01:54 Srikanth Shea R.N. 01:50 05/01/2017 Morphine IVP 8 mg given over 3 minute(s) via site #1. Allergies verified, confirmed 5 rights and sedative warning given to the patient. IV patency established. IV site checked: no pain, redness, or swelling. IV flushed thoroughly pre- and post-medication administration. --01:55 Srikanth Shea R.N. 01:43 Patient vomited - new emesis bag and additional tissues provided. --01:58 Srikanth Shea R.N. 01:58. Patient transported to radiology by stretcher with tech. --01:58 Srikanth Shea R.N. 02:06. Patient returned from radiology by stretcher with tech. --02:16 Srikanth Shea R.N. ( pt ambulated to restroom. normal gait noted.). --02:29 Susan Guerrero R.N. 03:05 05/01/2017 Tylenol (Acetaminophen) PO 650 mg given. Allergies verified and confirmed 5 rights. --03:10 Srikanth Shea R.N. 03:05/01/2017 Azithromycin PO 500 mg given. Allergies verified and confirmed 5 rights. --03:10 Srikanth Shea R.N. 03:05/01/2017 Ativan (LORazepam) PO 1 mg given. Allergies verified, confirmed 5 rights and sedative warning given to the patient. --03:12 Srikanth Shea R.N. 03:44 05/01/2017 Started 2 gm of Ceftriaxone IVPB in bag #1 50 mL; at 150 mL/hr over 20 minute(s) via site #1 via IV pump. Allergies verified and confirmed 5 rights. IV patency established. IV site checked: no pain, redness, or swelling. IV flushed thoroughly pre- and post-medication administration. --03:46 Srikanth Shea R.N. 03:55 05/01/17. BP: 156/90. HR: 103. RR: 17. O2 saturation: 93% on room air. Temp: 99.1 F. Pain level now: 06/14. --03:56 Srikanth Shea R.N. The patient is calm and resting quietly. RESPIRATORY: No respiratory distress. SKIN: Skin is warm and dry. Skin color within normal limits. --03:56 Srikanth Shea R.N. 04:07 05/01/2017 Ceftriaxone IVPB Discontinued: completed. Total amount infused: 50 mL. IV patency established. IV site checked: no pain, redness, or swelling. IV flushed thoroughly. --04:07 Simran Encinas R.N. 04:12 Patient walked to restroom. --04:12 Srikanth Shea R.N. 04:18 Patient back in bed. --04:22 Srikanth Shea R.N. 04:19 05/01/2017 Morphine IVP 8 mg given over 3 minute(s) via site #1. Allergies verified, confirmed 5 rights and sedative warning given to the patient. IV patency established. IV site checked: no pain, redness, or swelling. IV flushed thoroughly pre- and post-medication administration. --04:22 Srikanth Shea R.N. 04:22 05/01/2017 Started 500 mg of Azithromycin IVPB in bag #1 250 mL; at 255 mL/hr over 1 hour(s) via site #1 via IV pump. Allergies verified and confirmed 5 rights. IV patency established. IV site checked: no pain, redness, or swelling. IV flushed thoroughly pre- and post-medication administration. --04:23 Srikanth Shea R.N. 05:04. Oxygen administered by nasal cannula at 2 liters. --05:04 Srikanth Shea R.N. 05:06. The patient is calm and resting quietly. RESPIRATORY: No respiratory distress. SKIN: Skin is warm and dry. Skin color within normal limits. --05:16 Srikanth Shea R.N. 05:24 05/01/2017 Azithromycin IVPB Discontinued: bag #1 completed. Total amount infused: 250 mL. IV patency established. IV site checked: no pain, redness, or swelling. IV flushed thoroughly. --05:24 Susan Guerrero R.N. DISPOSITION / DISCHARGE <<STRICKEN ENTRY-- Departure time: 05:09. Condition at departure: stable. No learning barriers present. Discharge instructions provided and reviewed with tap out operator and the patient. Patient and tap out operator verbalized understanding. Written instructions provided in Libyan. The patient was discharged home and accompanied by tap out operator. She left the Emergency Department via private vehicle. Business Development Coordinator driving. Admitted to Acute Care. Transported via stretcher by nurse. Patient's personal items include: glasses and upper denture, other belongings; items were placed in belongings bag and transported with the patient. She did not have contacts or a hearing aid. FALL RISK ASSESSMENT: Fall risk assessment completed. No fall risk identified. --05:16 Srikanth Shea R.N. --END STRIKE>> Charted On Wrong Patient --05:17 Srikanth Shea R.N. 04:23 05/01/17. BP: 163/92. HR: 102. RR: 19. O2 saturation: 92% on room air. Pain level now: 06/14. --05:16 Srikanth Shea R.N. Condition at departure: stable. No learning barriers present. Admitted to Acute Care. Transported via stretcher by tech with O2. Report was given via a phone call. Report included patient's care, treatment, medications, reviewed medication reconcilliation, and condition (including any recent changes or anticipated changes). All questions were answered. Report was acknowledged. (Roscoe CASTROmanager medicare marketing). Patient's personal items include: glasses and upper denture, Other belongings; items were placed in belongings bag and transported with the patient. She did not have contacts or a hearing aid. --05:33 Srikanth Shea R.N. Departure time: 05:40. --05:40 Srikanth Shea R.N. Locked/Released at 05/01/2017 6:13 by Srikanth Shea R.N.
--- NOTE | 2017-05-01 03:42 | ED CLINICAL REPORT ---
Clinical Report - Physicians/Mid Levels [facility] [address] [address] 04/30/2017 22:59 Patient: LALA LUNA Time Seen: 0043. Arrived- By private vehicle. Historian- patient. HISTORY OF PRESENT ILLNESS Chief Complaint: FEVER. This started past few days and is still present. Fever was gradual in onset and has been intermittent but not measured. It is not gone now. The patient has had a cough. Additional history - No known contact with a sick individual. Has not recently been ill. She is not immunocompromised. No recent hospitalization. No new medication recently administered. No recent travel. No known exposure to an animal. +n/v described as nbnb. Similar symptoms previously: Once. Recent medical care: Not recently seen/assessed. REVIEW OF SYSTEMS No weight loss, palpitations, black stools, difficulty with urination or flank pain. No sore throat. All systems otherwise negative, except as recorded above. PAST HISTORY See nurses notes. Medications: Methocarbamol Oral 500 mg, 4x a day. Nicatrol inh. Percocet Oral 10/325 mg, 5 x daily. Potassimin Oral (takes PRN with Lasix). Promethazine HCl Oral, as needed (pt unsure of dose ). Topamax Oral 300mg , at bedtime. Tramadol HCL Oral 50 mg, 4x a day. Voltaren Gel. Zofran ODT Oral (Tablet Dispersible 4 mg) 1 tablet, as needed. Albuterol Sulfate HFA Inhalation 2 puffs, as needed. ASA Oral 81mg , daily. Atorvastatin Calcium Oral, daily (pt unsure of dose ). ClonazePAM Oral 1 mg, at bedtime. Gabapentin Oral 300 mg, 4x a day. Lasix Oral, as needed (pt unsure of dose ). Allergies: Lamictal. Seroquel. SOCIAL HISTORY Smoker- current status unknown. Not exposed to second-hand smoke at home. No alcohol use or drug use. No recent travel. Is a local resident. ADDITIONAL NOTES The nursing notes have been reviewed. PHYSICAL EXAM Vital Signs: 05/01/2017 04:23 BP: 163/92. HR: 102. RR: 19. O2 saturation: 92%. Pain level now: 8/10. Oxygen saturation normal. Appearance: Alert. No acute distress. Eyes: Pupils equal, round and reactive to light. Eyes normal inspection. ENT: Ears normal. Nose normal. Pharynx normal. Uvula midline. Neck: Normal inspection. Neck supple. CVS: Normal heart rate and rhythm. Heart sounds normal. Pulses normal. Respiratory: No respiratory distress. Rhonchi present in the right lung base posteriorly. Breath sounds normal. Chest nontender. No wheezes or prolonged expiration. Abdomen: Soft and nontender. Bowel sounds normal. Skin: Skin warm and dry. Normal skin color. No rash. Normal skin turgor. Extremities: Extremities exhibit normal ROM. Extremities nontender. Neuro: Oriented X 3. No motor deficit. No sensory deficit. (normal gait). LABS, X-RAYS, AND EKG Chest X-ray: (PROCEDURE: XR CHEST 2 VIEW INDICATION: FEVER TECHNIQUE: PA and lateral view. COMPARISON: None. FINDINGS: Small right basilar infiltrate. Normal left lung. Cardiovascular structures are normal. Mild levoconvex thoracolumbar spine scoliosis with moderate degenerative changes. IMPRESSION: 1. Right basilar pneumonia.). The X-rays were independently viewed by me and interpreted by the radiologist. The X-rays were discussed with the radiologist (via pacs). Laboratory Tests: CBC w Diff: (TIFFANIE: 05/02/2017 05:45) ( MsgRcvd 05/02/2017 05:53) Final results Test Result Flag Units (Reference) WHITE BLOOD COUNT 5.6 K/uL (4.5-11.5) RED BLOOD COUNT 3.83 L M/uL (4.00-5.20) HEMOGLOBIN 8.7 L gm/dL (12.0-16.0) HEMATOCRIT 28.4 L % (36.0-46.0) MEAN CELL VOLUME 74 L fL (80-100) MEAN CORPUSCULAR HGB 23 L pg (26-34) MEAN CORPUSCULAR HGB CONC 31 g/dL (31-37) RED CELL DISTRIBUTION WIDTH 19.3 H % (11.6-14.8) PLATELET COUNT 456 H K/uL (150-400) NEUTROPHIL % 39.0 L % (50-75) LYMPH % 47.9 H % (25-40) MONO % 9.0 % (3-14) EOSINOPHIL % 3.4 % (0-4) BASOPHIL % 0.7 % (0-2) CMP: (TIFFANIE: 05/02/2017 05:45) ( OkgRcvd 05/02/2017 06:12) Final results Test Result Flag Units (Reference) GLUCOSE 96 mg/dL (70-110) BUN 5 L mg/dL (7-18) CREATININE 0.7 mg/dL (0.6-1.3) Estimated GFR >60 mL/min Estimated GFR- >60 mL/min Note: Persistent reduction over 3 months in eGFR<60 mL/min/1.73 m2 defines CKD. Patients with eGFR values>=60 mL/min/1.73 m2 may also have CKD if evidence ofpersistent proteinuria. Additional information may be foundat [email or web address].org. SODIUM 143 mmol/L (136-145) POTASSIUM 3.6 # mmol/L (3.5-5.1) CHLORIDE 112 H mmol/L (98-107) CARBON DIOXIDE 22 mmol/L (21-32) CALCIUM 8.1 L mg/dL (8.5-10.1) TOTAL PROTEIN 5.9 L g/dL (6.4-8.2) ALBUMIN 2.9 L g/dL (3.3-5.0) BILIRUBIN, TOTAL 0.3 mg/dL (0.0-1.0) ALKALINE PHOSPHATASE 67 U/L (46-116) AST (SGOT) 10 L U/L (15-37) ALT (SGPT) 16 U/L (12-78) UA-Culture if indicated: (TIFFANIE: 05/01/2017 00:38) ( [facility] [place]:51) Final results Test Result Flag Units (Reference) URINE COLOR ASHLEY URINE APPEARANCE CLEAR URINE GLUCOSE NEGATIVE (NEGATIVE) URINE BILIRUBIN 1+ (NEGATIVE) URINE KETONE TRACE (NEGATIVE) URINE SPECIFIC GRAVITY 1.025 (1.010-1.030) URINE PH 5.5 (5.0-8.0) URINE PROTEIN TRACE (NEGATIVE) URINE UROBILINOGEN 0.2 EU/dL (0.2-1.0) URINE NITRITE NEGATIVE (NEGATIVE) URINE BLOOD NEGATIVE (NEGATIVE) URINE LEUK ESTERASE NEGATIVE (NEGATIVE) URINE RBC NONE SEEN rbc/hpf (0-1) URINE WBC 1-3 wbc/hpf (0-1) URINE EPITHELIAL CELLS 1-3 EPI/hpf (0-5) URINE BACTERIA TRACE (<1+) (NONE SEEN) URINE COMMENT CULT NOT INDICATED ICTO TEST NEG3-5 HYALINE CAST PER HIGH POWER FIELD(x40).URINE CULTURES ARE SET-UP BASED ON THE FOLLOWING CRITERIA:POSITIVE NITRITEPOSITIVE LEUKOCYTE ESTERASEGREATER THAN 10 WHITE BLOOD CELLSMODERATE (2+) OR GREATER BACTERIA CBC w Diff: (TIFFANIE: 05/01/2017 00:15) ( [facility] [place] 05/01/2017 01:31) Final results Test Result Flag Units (Reference) WHITE BLOOD COUNT 6.2 K/uL (4.5-11.5) RED BLOOD COUNT 4.06 M/uL (4.00-5.20) HEMOGLOBIN 9.1 L gm/dL (12.0-16.0) HEMATOCRIT 29.9 L % (36.0-46.0) MEAN CELL VOLUME 74 L fL (80-100) MEAN CORPUSCULAR HGB 23 L pg (26-34) MEAN CORPUSCULAR HGB CONC 31 g/dL (31-37) RED CELL DISTRIBUTION WIDTH 19.1 H % (11.6-14.8) PLATELET COUNT 389 K/uL (150-400) LYMPH % 35.1 % (25-40) MONO % 5.5 % (3-14) GRANULOCYTE % 59.4 % (53-90) [id number]: (TIFFANIE: 05/01/2017 07:40) ( [facility] [place] 05/01/2017 08:37) Final results Test Result Flag Units (Reference) VITAMIN B12 529 pg/mL (211-946) FOLATE 32.1 ng/mL (>3.0) [id number]: (TIFFANIE: 05/01/2017 07:40) ( [facility] [place] 05/01/2017 08:54) Final results Test Result Flag Units (Reference) IRON 24 L ug/dL (35-150) TOTAL IRON BINDING CAPACITY 349 ug/dL (260-445) % SATURATION 7 L % (15-50) [id number]: (TIFFANIE: 05/01/2017 00:15) ( MsgRcvd 05/01/2017 04:31) Final results Test Result Flag Units (Reference) PROCALCITONIN <0.5 ng/mL (0-0.5) PCT Concentration: Interpretation : Risk/option for action PCT <=0.5 ng/mL : Systemic : Low risk forinfection(sepsis): progression to severeis not likely. : systemic infection.Local bacterial : CAUTION-PCT levelsinfection is : below 0.5 ng/mL do notpossible. : exclude an infection,because localizedinfections (withoutsystemic signs) may beassociated with suchlow levels. If PCT ismeasured very earlyafter a bacterialchallenge (usually <6hours), these valuesmay still be low. Inthis case PCT shouldbe re-assessed 6-24hours later. PCT >0.5 and : Systemic infection: Moderate risk for<= 2 ng/mL : (sepsis) is : progression to severepossible, but : systemic infection.other conditions : The patient should beare known to : closely monitoredelevate PCT. : both clinically andby re-assessing PCTwithin 6-24 hours. PCT > 2 ng/mL : Systemic infection: High risk for(sepsis) is likely: progression to severeunless other : systemic infection.causes are known. : PCT >= 10 ng/mL : Important systemic: High likelihood ofinflammatory : severe sepsis orresponse, almost : septic shock.exclusively due to:severe bacterial :sepsis or septic :shock. : CMP: (TIFFANIE: 05/01/2017 00:15) ( MsgRcvd 05/01/2017 01:02) Final results Test Result Flag Units (Reference) GLUCOSE 103 mg/dL (70-110) BUN 9 mg/dL (7-18) CREATININE 0.9 mg/dL (0.6-1.3) Estimated GFR >60 mL/min Estimated GFR- >60 mL/min Note: Persistent reduction over 3 months in eGFR<60 mL/min/1.73 m2 defines CKD. Patients with eGFR values>=60 mL/min/1.73 m2 may also have CKD if evidence ofpersistent proteinuria. Additional information may be foundat [email or web address]. SODIUM 142 mmol/L (136-145) POTASSIUM 4.4 mmol/L (3.5-5.1) CHLORIDE 106 mmol/L (98-107) CARBON DIOXIDE 25 mmol/L (21-32) CALCIUM 8.5 mg/dL (8.5-10.1) TOTAL PROTEIN 7.0 g/dL (6.4-8.2) ALBUMIN 3.3 g/dL (3.3-5.0) BILIRUBIN, TOTAL 0.6 mg/dL (0.0-1.0) ALKALINE PHOSPHATASE 79 U/L (46-116) AST (SGOT) 57 H U/L (15-37) ALT (SGPT) 25 U/L (12-78) . PROGRESS AND PROCEDURES Course of Care: the patient is a pleasant 52 yo female presenting for evaluation of fever. patient non-toxic and in no acute distress. work up + for RLL pneumonia. No recent abx use. patient low risk on CURB 65. PO abx ordered. Patient states she can not go home like this. Reports no caregiver at home. Normally lives independently. After reviewing admission criteria, patient agreeable to trial of PO abx. Patient did not tolerate PO abx and vomited. Abx IV ordered. Discussed case with hospitalist who will accept aptient. requested PCT first. PCT negative. Do not feel patient needs ICU level of care. No signs of SIRS or sepsis. Patient stable on admission. Disposition: Observation. CLINICAL IMPRESSION right lower lobe pneumonia, acute acute nausea and vomiting. (Electronically signed by Alvarez Sr Dr. 05/03/2017 21:48)
--- NOTE | 2017-05-01 05:22 | Progress Note ---
Subjective General Admission History and Physical Examination Patient Name: Nati Keys Admission Date: May 01, 2017 Primary Care Provider: Jhonny Montana M.D. Attending Physician: Christos Mtz M.D. Admitting Physician: Eric Barron M.D. Code Status: FULL CODE Room: 205 Status: Observation, ACU SUBJECTIVE Historian: Patient Reliability: Fair Chief Complaint: Shortness of breath, fever, nausea, vomiting History of Present Illness: The patient is a 52-year-old white female with a significant past medical history of bipolar disease, restless leg syndrome, hyperlipidemia, joint joint disease, seizure disorder, insomnia, asthma/COPD, chronic pain, who presented to [facility] emergency department on the day of admission secondary to complaints of shortness of breath, fever, nausea, and vomiting. [facility] ER evaluation was consistent with right basilar pneumonia, recurrent nausea and vomiting and questionable syncope. Secondary to the above, the patient was admitted by Eric Barron M.D. for further evaluation and treatment. The history of present was began approximately one week prior to admission when the patient had episodes of lightheadedness with questionable episode of syncope. It is unclear whether the patient experienced any episode of loss of consciousness. She did apparently fall. This was associated with temperature elevation, shortness of breath with minimal cough, nausea, and emesis. The patient denied any history of hematemesis or coffee ground material and emesis. Secondary to the above symptoms the patient presented to [facility] ER for further evaluation and treatment. Chest x-ray showed right basilar infiltrate. The patient was afebrile with normal white count and normal Procalcitonin. Secondary to the above, the ER physician requested the patient be admitted for further evaluation and treatment. PAST MEDICAL HISTORY Illnesses: 1. Degenerative joint disease 2. Bipolar disease 3. Chronic pain 4. Hyperlipidemia 5. Restless leg syndrome 6. Seizure disorder 7. Chronic insomnia 9. Asthma/COPD Allergies: 1. Seroquel 2. Lamictal Medications: 1. Albuterol 2 inhalations every 6 hours when necessary shortness of breath 2. Aspirin 81 mg by mouth daily 3. Lipitor dosage unknown one by mouth daily 4. Clonazepam 1 mg by mouth daily at bedtime 5. Gabapentin 300 mg by mouth 4 times a day 6. Lasix dosage unknown one by mouth when necessary 7. Methocarbamol 500 mg by mouth 4 times a day 8. Percocet 10/325 one by mouth 5 times a day 9. Potassium dosage unknown one by mouth daily 10. Promethazine dosage unknown one by mouth every 6 hours when necessary nausea 11. Topamax 300 mg by mouth daily at bedtime 12. Tramadol 50 mg by mouth 4 times a day when necessary pain 13. Zofran ODT 4 mg by mouth every 6 hours when necessary nausea 14. Voltaren gel topically when necessary Surgery: 1. Left knee surgery 2. Bilateral hip replacement 3. Cholecystectomy 4. Left oophorectomy Injuries: 1. No significant Hospitalizations: 1. For previously mentioned surgery and medical problems FAMILY HISTORY Parents: 1. Father, , age unknown heart disease, 2. Mother, living, 75, myasthenia gravis, heart disease Siblings: 1. Male, living, 49, developmental disability Children: 1. The patient has 4 children, one with history of drug abuse Other significant family history: None SOCIAL HISTORY 1. Marital Status: 2. Scientologist: Alevism 3. Education: High school 4. Employment History: Disabled 2006 secondary to degenerative joint disease 5. Occupational health exposures: None HABITS 1. Tobacco: 6-13 pack years, one quarter pack per day 2. Drugs: None 3. Alcohol: None 4. Caffeine: Tea 4 cups per day HEALTH SUPERVISION Item/Test 1. Vision screen: 2015 2. Cholesterol Profile: 2016 3. PSA: Not applicable 4. LAURA: 2015 5. FOBT: Unknown 6. Blood Glucose: 2016 7. Colonoscopy: 2015 8. History and physical exam: 2016 9. Audiogram: Unknown 10. Mammogram: 2016 11. Pap/pelvic exam: Unknown IMMUNIZATIONS: 1. Pneumococcal: No previous 2. Influenza: 2014 3. Tetanus: Previously obtained within the past 10 years ADVANCED DIRECTIVES: 1. Living well: No 2. POLST: No 3. Code Status: FULL CODE 4. Durable [employer] Health care: No 5. Donor card: Yes REVIEW OF SYSTEMS Remarkable for those things stated in the history of present illness and past medical history. Seventeen point review of system completed with the following notable findings: General: Weight loss, fatigue, pain, fever, weakness Eyes: Dryness, visual loss, corrective lenses Respiratory: Shortness of breath, cough, wheezing, asthma/COPD Cardiovascular: Ankle swelling, hypertension, shortness of breath with exertion Genitourinary: Urinary incontinence, nocturia Gastrointestinal: Nausea/vomiting, loss of appetite Musculoskeletal: Joint stiffness, joint pain, joint swelling, muscle cramping/ weakness, backache Neurological: Balance problems, tremors, memory loss, headaches, sensation changes, seizures Psychological: Depression, anxiety, insomnia, hallucinations Physical Exam Vital Signs / I&Os Blood pressure: 165/10 1 mmHg Heart rate: 94/minute Respiratory rate: 17/minute Temperature: 99 6 Fahrenheit orally Pulse oximetry: 97% room air General Appearance Alert, Oriented X3, Cooperative, No acute distress HEENT Atraumatic, PERRLA, EOMI, Moist mucous membranes Lungs scattered rhonchi, minimal expiratory wheezes, no rales noted Neck Supple, No JVD, No masses, No thyromegaly Cardiovascular Regular rate and rhythm, Normal S1 and S2, No murmurs, gallops, rubs Abdomen Normal bowel sounds, Soft, No tenderness, No guarding Extremities No cyanosis, No clubbing, trace pedal edema Neurological Cranial nerves intact, Strength 5/5 x4 ext's, No lateralizing signs Psych/Mental Status Mental status normal, Mood normal LAB Results Laboratory Tests 05/01 05/01 05/01 0038 0015 0015 Chemistry Plasma Sodium (136 - 145 mmol/L) 142 Plasma Potassium (3.5 - 5.1 mmol/L) 4.4 Plasma Chloride (98 - 107 mmol/L) 106 CO2 (Enzymatic) (21 - 32 mmol/L) 25 BUN (7 - 18 mg/dL) 9 Creatinine (0.6 - 1.3 mg/dL) 0.9 Est GFR ( Amer) (mL/min) >60 Est GFR (Non-Af Amer) (mL/min) >60 Glucose (70 - 110 mg/dL) 103 Plasma Calcium (8.5 - 10.1 mg/dL) 8.5 Total Bilirubin (0.0 - 1.0 mg/dL) 0.6 AST (15 - 37 U/L) 57 ALT (12 - 78 U/L) 25 Alkaline Phosphatase (46 - 116 U/L) 79 Total Protein (6.4 - 8.2 g/dL) 7.0 Albumin (3.3 - 5.0 g/dL) 3.3 Procalcitonin (0 - 0.5 ng/mL) <0.5 Hematology WBC (4.5 - 11.5 K/uL) 6.2 RBC (4.00 - 5.20 M/uL) 4.06 Hgb (12.0 - 16.0 gm/dL) 9.1 Hct (36.0 - 46.0 %) 29.9 MCV (80 - 100 fL) 74 MCH (26 - 34 pg) 23 RDW (11.6 - 14.8 %) 19.1 Gran % (53 - 90 %) 59.4 Lymph % (Auto) (25 - 40 %) 35.1 [place] % (Auto) (3 - 14 %) 5.5 Plt Count, EDTA (150 - 400 K/uL) 389 PUBS MCHC (31 - 37 g/dL) 31 Urines Urine Color ASHLEY Urine Appearance CLEAR Urine pH (5.0 - 8.0) 5.5 Ur Specific Moran (1.010 - 1.030) 1.025 Urine Protein (NEGATIVE) TRACE Urine Ketones (NEGATIVE) TRACE Urine Blood (NEGATIVE) NEGATIVE Urine Nitrite (NEGATIVE) NEGATIVE Urine Bilirubin (NEGATIVE) 1+ Urine Urobilinogen (0.2 - 1.0 EU/dL) 0.2 Ur Leukocyte Esterase (NEGATIVE) NEGATIVE Urine RBC (0 - 1 rbc/hpf) NONE SEEN Urine WBC (0 - 1 wbc/hpf) 1-3 Ur Epithelial Cells (0 - 5 EPI/hpf) 1-3 Urine Bacteria (NONE SEEN) TRACE (<1+) Urine Glucose (NEGATIVE) NEGATIVE Urine Comment CULT NOT INDICATED Imaging Chest X-Ray IMPRESSION: 1. Right basilar pneumonia. Dictated by: JUDY SOLANO MD D: [facility];05/01/17 0557 Assessment and Plan Problem List 1. Right lower lobe pneumonia Plan -Patient presents with findings of right basilar pneumonia on chest x-ray -Patient with normal WBC, normal Procalcitonin. -Borderline temperature elevation -Treatment with Levaquin 750 mg IV daily. -Patient intolerant of Zithromax -Possible early discharge if medications tolerated and patient taking well orally 2. Anemia Plan -Patient with findings of mild microcytic anemia -Serum iron profile, B12, folate -Consider GI workup if iron deficiency anemia noted. Patient states colonoscopy last year 3. Syncope Plan -The patient gives a history of possible syncope. -History unclear and episode unwitnessed. -This occurred approximately 6 days ago. -No subsequent episodes. -Telemetry -Monitor 4. COPD (chronic obstructive pulmonary disease) Plan -Patient with history of COPD. -DuoNeb one via nebulizer every 6 hours -O2 sats normal on room air -Monitor -Encourage smoking cessation 5. Nicotine dependence Status Chronic Onset Date Unknown Plan -Patient with history of nicotine dependence-smoking -Smoking cessation education -NicoDerm patch when necessary -Encourage smoking abstinence post discharge 6. Intractable nausea and vomiting Plan -Patient gives a history of recurrent emesis. -Patient experienced emesis emergency room status post administration of Zithromax orally -Clear liquid diet -Monitor 7. Hypertension Status Chronic Onset Date Unknown Plan -Patient presents with findings of mild hypertension -Patient currently on no medications for hypertension treatment -Low-salt diet when taking well orally -Consider antihypertensive for persistent blood pressure elevation 8. Bipolar 1 disorder Plan -Patient with history of bipolar disorder. -Continue outpatient medical regimen -Outpatient follow-up with PCP Current status: Fair, unstable Anticipated discharge date: Anticipated discharge within 24 hours Anticipated discharge placement: Home Patient care time: Time in chart review, patient interview, physical exam, CPOE, and care documentation: 70 mins Visit to patient today: 1 Complexity of care: Moderate-high DVT prophylaxis: Lovenox 40 mg subcutaneous daily E&M Codes Admission: Obsv-Comp/High/[id number]
--- NOTE | 2017-05-01 05:58 | DIAGNOSTIC IMAGING REPORT ---
PROCEDURE: XR CHEST 2 VIEW INDICATION: FEVER TECHNIQUE: PA and lateral view. COMPARISON: None. FINDINGS: Small right basilar infiltrate. Normal left lung. Cardiovascular structures are normal. Mild levoconvex thoracolumbar spine scoliosis with moderate degenerative changes. IMPRESSION: 1. Right basilar pneumonia.
[2017-05-01] MEDS ORDERED: ATORVASTATIN CA10 MG PO (06:09)
[2017-05-01] MEDS ORDERED: PROAIR HFA IN (06:09)
[2017-05-01] MEDS ORDERED: [UNRECOGNIZED DRUG - OTHER] (06:10)
[2017-05-01] MEDS ORDERED: ZOFRAN ODT4 MG PO (06:10)
[2017-05-01] MEDS ORDERED: VOLTAREN1 % (06:10)
[2017-05-01 06:22] VITALS: BP 148/91
[2017-05-01 07:29] VITALS: BP 124/85
[2017-05-01 11:20] VITALS: BP 138/87
[2017-05-01 14:41] VITALS: BP 134/79
[2017-05-01 18:36] VITALS: BP 136/82
[2017-05-01 22:30] VITALS: BP 144/75
[2017-05-02 02:58] VITALS: BP 127/66
[2017-05-02 07:08] VITALS: BP 150/88
[2017-05-02 10:26] VITALS: BP 129/82
[2017-05-02] MEDS ORDERED: FERROUS SULFATE PO (11:46)
--- NOTE | 2017-05-02 11:49 | Provider's Discharge Care Plan ---
Problem, Goal, Plan Problem List 1. Iron deficiency Instructions: Take meds as directed 2. Weakness Instructions: - increase activity level - take clonazapam only as needed 3. Hypertension Instructions: Take meds as directed 4. Nicotine dependence Instructions: Stop smoking
--- NOTE | 2017-05-02 13:58 | Discharge Summary ---
Discharge Summary Report Admit Date 05/01/17 Discharge Date 05/02/17 Admission Diagnosis Weakness upper respiratory infection Discharge Diagnosis Possible viral upper respiratory infection Brief History Please refer to admission H&P Hospital Course Patient is a 52-year-old female presenting with weakness cough and sinus congestion. Patient was initially treated with antibiotics but was not seen to have a white blood cell count or any fevers prior to being treated. Patient stated the nights was treated with antibiotics and IV fluids. Patient was then walked around with the [employer]ENE[employer] JOINTER HELPER, the patient did not experience any weakness. Patient additionally did not have any evidence of infection, this was elucidated through the pro calcitonin level for which patient did not have any evidence of elevated pro calcitonin. Given this finding most likely patient's symptoms were due to a viral illness. Patient at this time is stable enough for discharge. We will set her up with home physical therapy additionally patient will resume her home medications. Patient will follow up with her PMD at a later date General Appearance Alert, Oriented X3, No acute distress HEENT PERRLA, Mucous membran moist/pink Lungs Normal air movement Cardiovascular Normal S1, Normal S2, No murmurs, Gallops Abdomen No tenderness, No hepatospenomegaly Skin No Breakdown, No Significant Lesions Neurological Normal speech, Normal tone, Sensation intact, Cranial nerves 3-12 NL Lab/Imaging Laboratory Tests 05/02 05/02 0500 0545 Chemistry Plasma Sodium (136 - 145 mmol/L) Cancelled 143 Plasma Potassium (3.5 - 5.1 mmol/L) Cancelled 3.6 Plasma Chloride (98 - 107 mmol/L) Cancelled 112 CO2 (Enzymatic) (21 - 32 mmol/L) Cancelled 22 BUN (7 - 18 mg/dL) Cancelled 5 Creatinine (0.6 - 1.3 mg/dL) Cancelled 0.7 Est GFR ( Amer) (mL/min) Cancelled >60 Est GFR (Non-Af Amer) (mL/min) Cancelled >60 Glucose (70 - 110 mg/dL) Cancelled 96 Plasma Calcium (8.5 - 10.1 mg/dL) Cancelled 8.1 Total Bilirubin (0.0 - 1.0 mg/dL) 0.3 AST (15 - 37 U/L) 10 ALT (12 - 78 U/L) 16 Alkaline Phosphatase (46 - 116 U/L) 67 Total Protein (6.4 - 8.2 g/dL) 5.9 Albumin (3.3 - 5.0 g/dL) 2.9 Hematology WBC (4.5 - 11.5 K/uL) 5.6 RBC (4.00 - 5.20 M/uL) 3.83 Hgb (12.0 - 16.0 gm/dL) 8.7 Hct (36.0 - 46.0 %) 28.4 MCV (80 - 100 fL) 74 MCH (26 - 34 pg) 23 RDW (11.6 - 14.8 %) 19.3 Neut % (Auto) (50 - 75 %) 39.0 Lymph % (Auto) (25 - 40 %) 47.9 [place] % (Auto) (3 - 14 %) 9.0 Eos % (Auto) (0 - 4 %) 3.4 Baso % (Auto) (0 - 2 %) 0.7 Plt Count, EDTA (150 - 400 K/uL) 456 PUBS MCHC (31 - 37 g/dL) 31 Discharge Instructions/Meds Take home medications as prescribed Continue with home physical therapy
--- NOTE | 2017-05-03 21:48 | ED MED RECONCILIATION SUMMARY ---
Patient: LALA LUNA Medication Reconciliation Report [facility] VisitID: [id number] [place] [address] 52y, F Registration Date/Time: 04/30/2017 Weight: 56.6 kg Height/Length: 63 in. BMI: 22.1 ALLERGIES: Lamictal, Seroquel The patient's Home Medications are listed below: THE FOLLOWING MEDICATIONS NEED TO BE RECONCILED: Albuterol Sulfate HFA Inhalation 2 puffs ASA Oral 81mg , daily Atorvastatin Calcium Oral, daily, pt unsure of dose ClonazePAM Oral 1 mg, at bedtime Gabapentin Oral 300 mg, 4x a day Lasix Oral, pt unsure of dose Methocarbamol Oral 500 mg, 4x a day Nicatrol inh Percocet Oral 10/325 mg, 5 x daily Potassimin Oral, takes PRN with Lasix Promethazine HCl Oral, pt unsure of dose Topamax Oral 300mg , at bedtime Tramadol HCL Oral 50 mg, 4x a day Voltaren Gel Zofran ODT Oral (4 mg) 1 tablet The source(s) of the original Home Medication information: patient The following Medications were given to the patient in the Emergency Department: Zofran [IVP] IVP 4 mg, administered: 05/01/2017 12:41:00 AM PHENERGAN [IVP] IVP 25 mg, administered: 05/01/2017 1:48:00 AM Morphine [IVP] IVP 8 mg, administered: 05/01/2017 1:50:00 AM Tylenol [PO] PO 650 mg, administered: 05/01/2017 3:05:00 AM Azithromycin [PO] PO 500 mg, administered: 05/01/2017 3:05:00 AM Ativan [PO] PO 1 mg, administered: 05/01/2017 3:05:00 AM Ceftriaxone [IVPB] IVPB bolus 0, then 2 gm 150 mL/hr, administered: 05/01/2017 3:44:00 AM Morphine [IVP] IVP 8 mg, administered: 05/01/2017 4:19:00 AM Azithromycin [IVPB] IVPB bolus 0, then 500 mg 255 mL/hr, administered: 05/01/2017 4:22:00 AM The following Medications were prescribed to the patient: None.
--- NOTE | 2017-05-03 21:48 | ED MAR SUMMARY ---
..... Medication Administration Record [facility] [address] [place] [place] [address] Patient: LALA LUNA Visit ID: [id number] 52y, F Weight: 56.6 kg Height/Length: 63 in BMI: 22.1 ALLERGIES: Lamictal, Seroquel Given 00:41 05/01/2017 Srikanth Shea R.N. Medication Administered: ZOFRAN [IVP] (ONDANSETRON HCL), Dose: 4 mg IVP over 2 minute(s), Site: #1 right hand. Medication Ordered: Zofran IV 4 mg (NOW). Given 01:48 05/01/2017 Srikanth Shea R.N. Medication Administered: PHENERGAN [IVP] (PROMETHAZINE HCL), Dose: 25 mg IVP over 2 minute(s), Site: #1 right hand. Medication Ordered: Phenergan IV 25 mg (HIGH ALERT MEDICATION, NOW). Given 01:50 05/01/2017 Srikanth Shea R.N. Medication Administered: MORPHINE [IVP], Dose: 8 mg IVP over 3 minute(s), Site: #1 right hand. Medication Ordered: Morphine IV 8 mg (HIGH ALERT MEDICATION, NOW). Given 03:05 05/01/2017 Srikanth Shea R.N. Medication Administered: TYLENOL [PO] (ACETAMINOPHEN), Dose: 650 mg PO. Medication Ordered: Tylenol PO 650 mg (NOW). Given 03:05 05/01/2017 Srikanth Shea R.N. Medication Administered: AZITHROMYCIN [PO], Dose: 500 mg PO. Medication Ordered: Azithromycin PO 500 mg (NOW). Given 03:05 05/01/2017 Srikanth Shea R.N. Medication Administered: ATIVAN [PO] (LORAZEPAM), Dose: 1 mg PO. Medication Ordered: Ativan PO 1 mg (NOW). Start 03:44 05/01/2017 Srikanth Shea R.N., Stop 04:07 05/01/2017 Simran Encinas R.N. Medication Administered: CEFTRIAXONE [IVPB], Dose: 2 gm IVPB over 20 minute(s), Rate: 150 mL/hr, Dispensed: 50 mL bag, Site: #1 right hand. Medication Ordered: Ceftriaxone IV 2 gm/50mL (NOW). Given 04:19 05/01/2017 Srikanth Shea, R.N. Medication Administered: MORPHINE [IVP], Dose: 8 mg IVP over 3 minute(s), Site: #1 right hand. Medication Ordered: Morphine IV 8 mg (HIGH ALERT MEDICATION, NOW). Start 04:22 05/01/2017 Srikanth Shea, R.N., Stop 05:24 05/01/2017 Susan Guerrero RAna LuisaN. Medication Administered: AZITHROMYCIN [IVPB], Dose: 500 mg IVPB over 1 hour(s), Rate: 255 mL/hr, Dispensed: 250 mL bag, Site: #1 right hand. Medication Ordered: Azithromycin IV 500 mg/250 mL (NOW).
--- NOTE | 2017-05-03 21:48 | ED MED RECONCILIATION SUMMARY ---
Patient: LALA LUNA Medication Reconciliation Report [facility] VisitID: [id number] [place] [address] 52y, F Registration Date/Time: 04/30/2017 Weight: 56.6 kg Height/Length: 63 in. BMI: 22.1 ALLERGIES: Lamictal, Seroquel The patient's Home Medications are listed below: THE FOLLOWING MEDICATIONS NEED TO BE RECONCILED: Albuterol Sulfate HFA Inhalation 2 puffs ASA Oral 81mg , daily Atorvastatin Calcium Oral, daily, pt unsure of dose ClonazePAM Oral 1 mg, at bedtime Gabapentin Oral 300 mg, 4x a day Lasix Oral, pt unsure of dose Methocarbamol Oral 500 mg, 4x a day Nicatrol inh Percocet Oral 10/325 mg, 5 x daily Potassimin Oral, takes PRN with Lasix Promethazine HCl Oral, pt unsure of dose Topamax Oral 300mg , at bedtime Tramadol HCL Oral 50 mg, 4x a day Voltaren Gel Zofran ODT Oral (4 mg) 1 tablet The source(s) of the original Home Medication information: patient The following Medications were given to the patient in the Emergency Department: Zofran [IVP] IVP 4 mg, administered: 05/01/2017 12:41:00 AM PHENERGAN [IVP] IVP 25 mg, administered: 05/01/2017 1:48:00 AM Morphine [IVP] IVP 8 mg, administered: 05/01/2017 1:50:00 AM Tylenol [PO] PO 650 mg, administered: 05/01/2017 3:05:00 AM Azithromycin [PO] PO 500 mg, administered: 05/01/2017 3:05:00 AM Ativan [PO] PO 1 mg, administered: 05/01/2017 3:05:00 AM Ceftriaxone [IVPB] IVPB bolus 0, then 2 gm 150 mL/hr, administered: 05/01/2017 3:44:00 AM Morphine [IVP] IVP 8 mg, administered: 05/01/2017 4:19:00 AM Azithromycin [IVPB] IVPB bolus 0, then 500 mg 255 mL/hr, administered: 05/01/2017 4:22:00 AM The following Medications were prescribed to the patient: None.
--- NOTE | 2017-05-03 21:48 | ED MAR SUMMARY ---
..... Medication Administration Record [facility] [address] [place] [address] Patient: LALA LUNA Visit ID: [id number] 52y, F Weight: 56.6 kg Height/Length: 63 in BMI: 22.1 ALLERGIES: Lamictal, Seroquel Given 00:41 05/01/2017 Srikanth Shea R.N. Medication Administered: ZOFRAN [IVP] (ONDANSETRON HCL), Dose: 4 mg IVP over 2 minute(s), Site: #1 right hand. Medication Ordered: Zofran IV 4 mg (NOW). Given 01:48 05/01/2017 Srikanth Shea R.N. Medication Administered: PHENERGAN [IVP] (PROMETHAZINE HCL), Dose: 25 mg IVP over 2 minute(s), Site: #1 right hand. Medication Ordered: Phenergan IV 25 mg (HIGH ALERT MEDICATION, NOW). Given 01:50 05/01/2017 Srikanth Shea R.N. Medication Administered: MORPHINE [IVP], Dose: 8 mg IVP over 3 minute(s), Site: #1 right hand. Medication Ordered: Morphine IV 8 mg (HIGH ALERT MEDICATION, NOW). Given 03:05 05/01/2017 Srikanth Shea R.N. Medication Administered: TYLENOL [PO] (ACETAMINOPHEN), Dose: 650 mg PO. Medication Ordered: Tylenol PO 650 mg (NOW). Given 03:05 05/01/2017 Srikanth Shea R.N. Medication Administered: AZITHROMYCIN [PO], Dose: 500 mg PO. Medication Ordered: Azithromycin PO 500 mg (NOW). Given 03:05 05/01/2017 Srikanth Shea R.N. Medication Administered: ATIVAN [PO] (LORAZEPAM), Dose: 1 mg PO. Medication Ordered: Ativan PO 1 mg (NOW). Start 03:44 05/01/2017 Srikanth Shea R.N., Stop 04:07 05/01/2017 Simran Encinas R.N. Medication Administered: CEFTRIAXONE [IVPB], Dose: 2 gm IVPB over 20 minute(s), Rate: 150 mL/hr, Dispensed: 50 mL bag, Site: #1 right hand. Medication Ordered: Ceftriaxone IV 2 gm/50mL (NOW). Given 04:19 05/01/2017 Srikanth Shea, R.N. Medication Administered: MORPHINE [IVP], Dose: 8 mg IVP over 3 minute(s), Site: #1 right hand. Medication Ordered: Morphine IV 8 mg (HIGH ALERT MEDICATION, NOW). Start 04:22 05/01/2017 Srikanth Shea, R.N., Stop 05:24 05/01/2017 Susan Guerrero RAna LuisaN. Medication Administered: AZITHROMYCIN [IVPB], Dose: 500 mg IVPB over 1 hour(s), Rate: 255 mL/hr, Dispensed: 250 mL bag, Site: #1 right hand. Medication Ordered: Azithromycin IV 500 mg/250 mL (NOW).
--- NOTE | 2017-05-03 21:48 | ED DISCHARGE INSTRUCTIONS ---
Patient: LALA LUNA General Instructions [facility] VisitID: [id number] [address] [place] [address] 52y, F Registration Date/Time: 04/30/2017 right lower lobe pneumonia, acute acute nausea and vomiting. (Electronically signed by Alvarez Sr Dr. 05/03/2017 21:48)
--- NOTE | 2017-05-03 21:48 | ED DISCHARGE INSTRUCTIONS ---
Patient: LALA LUNA General Instructions [facility] VisitID: [id number] [address] [place] [address] 52y, F Registration Date/Time: 04/30/2017 right lower lobe pneumonia, acute acute nausea and vomiting. (Electronically signed by Alvarez Sr Dr. 05/03/2017 21:48)
== END 2017-05-02 13:45 | disposition home or self-care (01) ==
LOC: ED SRH 22:58 → ACUTE2 SRH 05-01 03:52 → TRANS SRH 05-01 03:52 → ACUTE2 SRH 05-01 05:47
PROVIDERS: ADMIT Internal Medicine
DX: R06.02 Shortness of breath (principal); R50.9 Fever, unspecified; R11.2 Nausea with vomiting, unspecified; R42 Dizziness and giddiness; D50.9 Iron deficiency anemia, unspecified; J44.9 Chronic obstructive pulmonary disease, unspecified; G40.909 Epilepsy, unspecified, not intractable, without status epilepticus; G25.81 Restless legs syndrome; I10 Essential (primary) hypertension; F31.9 Bipolar disorder, unspecified
CPT/HCPCS: 29230; 29244; 29247; 29250; 29251; 90004; 90074; 90100; 91504; 91505; 92668; 92670; 93004; 95059